=== PATIENT | male | born 1960 | race Caucasian/White ===

== ENCOUNTER 2017-10-23 12:00 | Emergency (ER) | payer OTHER, SELFPAY | END 2017-10-23 14:42 | disposition home or self-care (01) | PROVIDERS: Emergency Provider Nurse Practitioner Family; Family Provider Family Medicine; Visit Provider Nurse Practitioner Family | DX: M25.571 Pain in right ankle and joints of right foot (principal); Z87.39 Personal history of other diseases of the musculoskeletal system and connective tissue | CPT/HCPCS: 73610; 80048; 84550; 99201 ==

== ENCOUNTER 2019-04-24 16:13 | Emergency (ER) | payer OTHER, SELFPAY ==
[2019-04-24 16:24] VITALS: BP 144/97; PULSE 96; RESP 18; TEMP 37.2; O2SAT 98; BMI 31.3
--- NOTE | 2019-04-24 16:39 | HMH.EDUTC ---
[facility] [place] Disposition Clinical Impression: Abscess Cellulitis Qualifiers: Site of cellulitis: head Qualified Code(s): L03.811 - Cellulitis of head [any part, except face] Disposition: Home, Self-Care Condition on Discharge: Good Instructions: Cellulitis, Boil, DI for Skin Abscess, Clindamycin Additional Instructions: *Start antibiotic(s) immediately and be sure to take as ordered for the FULL length of time although you may be feeling better or start to see improvement in the next 24-48 hours *Monitor closely. Outlined redness so that you can monitor easier. Follow up immediately for new or worsening symptoms including but not limited to redness, swelling, streaking from site fever or chills. *Warm compress 15 minutes 3-4 times day *Never squeeze or pop these on your own. Seek immediate medical attention next time this occurs *Monitor Temp. Tylenol every 4 hours as needed and ibuprofen every 6 hours as needed (as long as your primary care doctor has told you that it is ok to take both. For fever, aches, pain. ER if no less that 101 despite Tylenol and ibuprofen Follow up with your family doctor/primary care physician in the next 48-72 hours if no improvement Return if needed Straight to ER if any life threatening symptoms Prescriptions: Clindamycin HCl [Clindamycin HCl 300mg Cap] 300 mg PO Q6 40 Days #40 cap Referrals: Bartolo Pyle MD [Primary Care Provider] - As needed (in 48-72 hours or sooner if any worsening or no improvment) Time of Disposition: 16:52 Medical Decision Making - Walt Inquiry Pt receiving controlled substance: No Walt was queried for this patient: No Vital Signs: 04/24/19 16:24 Temperature 98.9 F Temperature Source Oral Pulse Rate [Left Apical] 96 H Respiratory Rate 18 Blood Pressure [Right Arm] 144/97 H Blood Pressure Mean [Right Arm] 112 02 Sat by Pulse Oximetry 98 Oxygen Delivery Method Room Air [facility] [place] HPI - General Stated complaint: Boil on back of Neck,DELCID Time Seen by Provider: 04/24/19 16:39 Mode of Arrival: Ambulatory Source of Information: Patient Limitations: No Limitations Description of Symptoms (Recalled from Triage Doc. by RN): PT C/O SWOLLEN SPOT ON BACK OF HEAD. PT STATES IT HAS BEEN THERE FOR 3 DAYS. HEENT Symptoms (Recalled from RN notes): No Resp Symptoms (Recalled from RN notes): No Skin Symptoms (Recalled from RN notes): Yes MS Symptoms (Recalled from RN notes): No Functional Status (Recalled from RN notes): N/A - History of Present Illness Provider Complaint: Patient state that he noticed a small pimple like area on the left side of the back of his head on Tuesday and he tried to pop it and didn't get anything out of it State that he noticed today it looked bigger and he tried to pop it again and still nothing State that he has had areas like this before and had to take antibiotics state that it was sore and hurting earlier but he took some aleeve and it was better - Related Data Previous Rx's Medication Instructions Recorded Clindamycin HCl [Clindamycin HCl 300 mg PO Q6 40 Days #40 cap 04/24/19 300mg Cap] Allergies Allergy/AdvReac Type Severity Reaction Status Date / Time No Known Allergies Allergy Unverified 10/18/17 14:24 - Worker's Comp Is this a Worker's Comp case?: No [facility] History - Hepatitis A Screen Drug use history?: No High risk sexual behaviors?: No History of sexually transmitted infection?: No Currently employed?: No Childcare worker?: No Do you have indoor plumbing?: Yes Do you have electricity?: Yes Attestation statement:: This patient has been screened for Hepatitis A risk factors. - Social History Alcohol Intake: never Occupational Status: employed - Psychiatric History Expresses thoughts of harming self/others: None Suicide Plan Description: No Plan ROS Obtained: Yes All systems reviewed & no additional complaints, Yes Systems reviewed as appropriate & no additional complaints Physical Exam - Gene
[2019-04-24 16:53] VITALS: BP 126/66; PULSE 65; RESP 20; TEMP 36.6; O2SAT 100
== END 2019-04-24 17:01 | disposition home or self-care (01) ==
PROVIDERS: Emergency Provider Nurse Practitioner; PCP Family Medicine
DX: L03.811 Cellulitis of head [any part, except face] (principal)
CPT/HCPCS: 99201

== ENCOUNTER 2020-07-19 18:14 | Emergency (ER) | payer OTHER, SELFPAY ==
[2020-07-19 18:15] VITALS: BP 152/98; PULSE 91; RESP 18; TEMP 36.8; O2SAT 96; BMI 30.7
--- NOTE | 2020-07-19 18:17 | HMH.EDGENADL ---
ED Disposition Clinical Impression: Laceration of hand Qualifiers: Encounter type: initial encounter Foreign body presence: without foreign body Laterality: left Qualified Code(s): S61.412A - Laceration without foreign body of left hand, initial encounter Disposition: Home, Self-Care Condition on Discharge: Good Additional Instructions: Follow-up with your PCP. If you have any new, changing, worsening, or concerning symptoms, come back to the emergency department. Referrals: Luis Ward MD [Primary Care Provider] - Time of Disposition: 19:01 - Critical Care Critical Care Time: No Attestation: On , the high probability of a clinically significant, sudden or life threatening deterioration of the following system(s) required my full and direct attention, intervention and personal management. The time I documented below is in addition to time spent performing reported procedures but includes the following listed in this critical care notation. Medical Decision Making - Medical Records Medical records reviewed: Yes: I reviewed the patient's medical records. MR Comment: 59-year-old male presents emergency department with a transverse laceration on the volar aspect of his left index finger at the DIP joint. He has full range of motion. X-ray none this area, not concerned about foreign body or fracture. We will update his tetanus vaccination status, repair the laceration, but for tendon injury and reassess. On reassessment, patient remains well. No tendon injury on exam. See lack repair note for more details. Laceration was repaired and he tolerated this well, it was washed copiously with saline prior to closure. He was given strict return precautions and discharge instructions including follow-up for further evaluation and treatment and verbalized understanding and agreement to the plan. Safe to discharge. - Walt Inquiry Pt receiving controlled substance: No Vital Signs: 07/19/20 18:15 07/19/20 18:31 Temperature 98.2 F Temperature Source Oral Pulse Rate [Left Radial] 91 H 90 Respiratory Rate 18 Blood Pressure [Right Arm] 152/98 H 139/90 Blood Pressure Mean [Right Arm] 116 106 Blood Pressure Source [Right Arm] Automatic Cuff Automatic Cuff Blood Pressure Position [Right Arm] Sitting Sitting 02 Sat by Pulse Oximetry 96 96 Oxygen Delivery Method Room Air Room Air Orders (Tests/Meds): ED MEDICATIONS Discontinued Medications Generic Name Dose Route Start Last Admin Trade Name Freq PRN Reason Stop Dose Admin Tetanus/Reduced Diphtheria/Acell Pertussis 0.5 ml 07/19/20 18:21 07/19/20 18:30 Adacel Tdap 0.5ml Syringe IM 07/19/20 18:22 0.5 ml .ONCE ONE Administration General Adult HPI - General Stated complaint: AO [id number] @1745 Lac to L index finger Time Seen by Provider: 07/19/20 18:17 - History of Present Illness HPI narrative: 59-year-old male presents emergency department with left index finger laceration. He states he was using a sharp fillet knife when he cut his finger just prior to arrival. Some pain, has not taken anything, nothing makes better or worse. He denies any numbness or tingling, no other injury. Not on blood thinners. No other symptoms or concerns at this time. - Related Data Previous Rx's Medication Instructions Recorded Ondansetron [Zofran 4mg ODT] 4 mg PO Q8HP PRN #20 tab.rapdis 10/10/19 Allergies Allergy/AdvReac Type Severity Reaction Status Date / Time No Known Allergies Allergy Unverified 10/18/17 14:24 [facility] History - Hepatitis A Screen Attestation statement:: This patient has been screened for Hepatitis A risk factors. I have reviewed the patient's past medical history: Yes - Social History Smoking Status: Never smoker Tobacco Type: smokeless tobacco # Packs/Day (cigarettes): 0 Alcohol Intake: never Occupational Status: employed ROS Obtained: Yes All systems reviewed & no additional complaints Physical Exam - G
[2020-07-19 18:31] VITALS: BP 139/90; PULSE 90; O2SAT 96
--- NOTE | 2020-07-19 18:40 | PC.NURSE ---
at bedside suturing.
[2020-07-19 19:11] VITALS: BP 142/85; PULSE 87; RESP 18; TEMP 36.8; O2SAT 100
== END 2020-07-19 19:12 | disposition home or self-care (01) ==
PROVIDERS: Emergency Provider Emergency Medicine; PCP Family Medicine
DX: S61.412A Laceration without foreign body of left hand, initial encounter (principal); W26.0XXA Contact with knife, initial encounter; Y92.019 Unspecified place in single-family (private) house as the place of occurrence of the external cause; Z23 Encounter for immunization; F17.290 Nicotine dependence, other tobacco product, uncomplicated
CPT/HCPCS: 12001; 90715; 99282

== ENCOUNTER 2020-07-29 18:40 | Emergency (ER) | payer OTHER, SELFPAY ==
[2020-07-29 19:35] VITALS: BP 148/87; PULSE 83; RESP 18; TEMP 36.8; O2SAT 97; BMI 25.8
[2020-07-29 19:38] VITALS: BP 148/87; PULSE 83; RESP 18; TEMP 36.8; O2SAT 98
== END 2020-07-29 19:39 | disposition home or self-care (01) ==
LOC: UTC 18:43
PROVIDERS: Emergency Provider Nurse Practitioner; PCP Family Medicine
DX: S61.412D Laceration without foreign body of left hand, subsequent encounter (principal)

== ENCOUNTER 2020-08-13 15:36 | Emergency (ER) | payer OTHER, SELFPAY ==
--- NOTE | 2020-08-13 15:32 | ECG_ITS ---
APPROVED REPORT Exam: Resting ECG HR:89 bpm ECG Measurements Heart Rate 89 AXES GA 132 P -87 QRSd 98 QRS 78 QT 344 T 264 QTc 418 Conclusion Unusual P axis and short GA, probable junctional tachycardia with occasional premature ventricular complexes T wave abnormality, consider inferolateral ischemia Abnormal ECG Electronically signed by : Luis Carrera, 08/17/2020 09:47:46
[2020-08-13 15:37] VITALS: BP 173/100; PULSE 89; RESP 17; TEMP 37; O2SAT 98; BMI 31.8
--- NOTE | 2020-08-13 15:38 | HMH.EDGENADL ---
ED Disposition Clinical Impression: Chest pain Qualifiers: Chest pain type: unspecified Qualified Code(s): R07.9 - Chest pain, unspecified Disposition: Home, Self-Care Condition on Discharge: Fair Instructions: DI for Atypical Chest Pain Additional Instructions: Please follow a strict low sugar/low-carb diet and exercise until following up with your primary care doctor within several days. Immediate return if any recurrent chest pain, shortness of breath, nausea/vomiting, abdominal pain, generalized malaise, weakness, or other new concerning symptoms. - Critical Care Critical Care Time: No Attestation: On , the high probability of a clinically significant, sudden or life threatening deterioration of the following system(s) required my full and direct attention, intervention and personal management. The time I documented below is in addition to time spent performing reported procedures but includes the following listed in this critical care notation. Medical Decision Making - Medical Records Medical records reviewed: Yes: I reviewed the patient's medical records. - Walt Inquiry Pt receiving controlled substance: No Vital Signs: 08/13/20 15:37 08/13/20 16:34 08/13/20 17:29 Temperature 98.6 F Temperature Source Oral Pulse Rate [Right Brachial] 89 78 67 Respiratory Rate 17 17 Blood Pressure [Right Arm] 173/100 H 126/83 139/85 Blood Pressure Mean [Right Arm] 124 97 103 Blood Pressure Source [Right Arm] Automatic Cuff Automatic Cuff Automatic Cuff Blood Pressure Position [Right Arm] Sitting Sitting Sitting 02 Sat by Pulse Oximetry 98 97 96 Oxygen Delivery Method Room Air Room Air Room Air 08/13/20 17:43 08/13/20 18:37 Temperature Temperature Source Pulse Rate [Right Brachial] 72 67 Respiratory Rate Blood Pressure [Right Arm] 139/85 130/80 Blood Pressure Mean [Right Arm] 103 96 Blood Pressure Source [Right Arm] Automatic Cuff Automatic Cuff Blood Pressure Position [Right Arm] Sitting Sitting 02 Sat by Pulse Oximetry 96 96 Oxygen Delivery Method Room Air Room Air - Lab Data Lab Results 08/13/20 15:39: WBC 7.5, RBC 5.54, Hgb 17.1, Hct 50.7, MCV 91.6, MCH 31.0, MCHC 33.8, RDW 11.9, Plt Count 217, MPV 8.2, Neut % (Auto) 56.5, Lymph % (Auto) 34.2, [place] % (Auto) 7.3, Eos % (Auto) 0.8, Baso % (Auto) 1.2, Neut # (Auto) 4.2, Lymph # (Auto) 2.6, [place] # (Auto) 0.5, Eos # (Auto) 0.1, Baso # (Auto) 0.1 08/13/20 15:39: Sodium 133 L, Potassium 3.4 L, Chloride 92 L, Carbon Dioxide 31 H, Anion Gap 13.4, BUN 13, Creatinine 0.70, Estimated Creat Clear 142, Estimated GFR 115, Est GFR ( Amer) 139, Glucose 418 H*, Calcium 9.3, Troponin I < 0.01 08/13/20 19:00: POC Glucose 316 H* Result diagrams: 08/13/20 15:39 08/13/20 15:39 Orders (Tests/Meds): ED MEDICATIONS Generic Name Dose Route Start Last Admin Trade Name Freq PRN Reason Stop Dose Admin Lactated Ringer's 1,000 mls @ 999 mls/hr 08/13/20 17:30 08/13/20 17:31 Lactated Ringer's 1000 Ml Bag IV 08/13/20 18:30 999 mls/hr .Q1H1M MARKUS Administration Discontinued Medications Generic Name Dose Route Start Last Admin Trade Name Freq PRN Reason Stop Dose Admin Aspirin 325 mg 08/13/20 15:47 08/13/20 15:57 Aspirin 325mg Tablet PO 08/13/20 15:48 325 mg ONCE ONE Administration Ketorolac Tromethamine 15 mg 08/13/20 17:03 08/13/20 17:25 Ketorolac 30mg/Ml Vial IV 08/13/20 17:04 15 mg ONCE ONE Administration ORDERS Category Date Time Status Troponin I Q3H Lab 08/13/20 18:50 Received Troponin I Q3H Lab 08/13/20 21:45 Ordered Urinalysis and Microscopic Stat Lab 08/13/20 17:03 Ordered - ECG Data Tracing #1 I reviewed this ECG and interpreted as documented below: EKG demonstrates sinus rhythm at a rate of 89 bpm; no acute ST elevation; T wave inversions noted inferiorly and laterally; QTC 418 ms Medical Decision Narrative: Patient presents to the emergency department chest pain. Hemodynamic
--- NOTE | 2020-08-13 15:44 | XR_ITS ---
PROCEDURE: XR CHEST 2V CLINICAL HISTORY: chest pain COMPARISON: No exams were available for comparison FINDINGS: The cardiomediastinal silhouette and pulmonary vascularity are within normal limits. The lungs are clear without infiltrates, suspicious nodules, or pleural effusions. Minimal fibrotic changes are present along the anterior clear space. No acute bony findings. IMPRESSION: No acute findings. Dictated by: Barry Krishnamurthy MD 08/13/2020 16:11 Barry Krishnamurthy MD in [place] 08/13/2020 16:11
[2020-08-13 15:51] LABS: Chloride 92 mmol/L (98-107)
[2020-08-13 15:52] LABS: Potassium 3.4 mmoL/L (3.5-5.1); Sodium 133 mmol/L (136-145)
[2020-08-13 15:53] LABS: Basophils # 0.1 K/mm3 (0-0.2); Basophils % 1.2 % (0.1-2.0); Eosinophils # 0.1 K/mm3 (0.0-0.4); Eosinophils % 0.8 % (0.1-12.0); Hematocrit 50.7 % (42.0-52.0); Hemoglobin 17.1 g/dL (14.1-18.0); Lymphocytes # 2.6 K/mm3 (0.7-4.5); Lymphocytes % 34.2 % (10-50); Mean Corpuscular HGB Conc 33.8 g/dL (31.8-35.4); Mean Corpuscular Volume 91.6 fl (80-94); Mean Platelet Volume 8.2 fl (7.4-10.4); Monocytes # 0.5 K/mm3 (0.1-1.0); Monocytes % 7.3 % (1.7-9.3); Neutrophils # 4.2 K/mm3 (1.8-7.8); Neutrophils % 56.5 % (37.0-80.0); Platelet Count 217 K/mm3 (142-424); Red Blood Count 5.54 M/mm3 (4.60-6.20); Red Cell Distribution Width 11.9 % (11.5-17.5); White Blood Count 7.5 K/mm3 (4.8-10.8)
[2020-08-13 15:54] LABS: Blood Urea Nitrogen 13 mg/dl (9-20); Creatinine Clearance Estimated 142 mL/min (50-200); Estimated Glomerular Filt Rate 115 ml/min (>60); GFR (African American) 139 ML/MIN (>60)
[2020-08-13 15:55] LABS: Anion Gap 13.4 mEq/L (5-15); Calcium 9.3 mg/dl (8.4-10.2); Carbon Dioxide 31 mmol/L (22.0-30.0)
[2020-08-13 16:06] LABS: Glucose 418 mg/dl (74-100)
[2020-08-13 16:08] LABS: Troponin I < 0.01 ng/ml (0.00-0.034)
--- NOTE | 2020-08-13 16:08 | PC.NURSE ---
notified ER of pt critical glucose
[2020-08-13 16:34] VITALS: BP 126/83; PULSE 78; O2SAT 97
[2020-08-13 17:29] VITALS: BP 139/85; PULSE 67; RESP 17; O2SAT 96
[2020-08-13 17:43] VITALS: BP 139/85; PULSE 72; O2SAT 96
[2020-08-13 18:37] VITALS: BP 130/80; PULSE 67; O2SAT 96
[2020-08-13 19:11] LABS: POC Glucose,Bedside 316 (70-110)
[2020-08-13 19:36] LABS: Troponin I < 0.01 ng/ml (0.00-0.034)
[2020-08-13 19:52] VITALS: BP 134/78; PULSE 64; RESP 16; TEMP 37; O2SAT 98
== END 2020-08-13 19:54 | disposition home or self-care (01) ==
PROVIDERS: Emergency Provider Emergency Medicine; PCP Family Medicine
DX: R07.9 Chest pain, unspecified (principal); R03.0 Elevated blood-pressure reading, without diagnosis of hypertension; E11.65 Type 2 diabetes mellitus with hyperglycemia; F17.290 Nicotine dependence, other tobacco product, uncomplicated
CPT/HCPCS: 36415; 71046; 80048; 82962; 84484; 85025; 93005; 96365; 96375; 99284

== ENCOUNTER → 2020-08-27 06:36 | Outpatient (CLI) | payer OTHER, SELFPAY ==
--- NOTE | 2020-08-27 | CA_ITS ---
APPROVED REPORT Exam: Exercise Treadmill Technologist: Gregoria Escobar Ht: 5 ft 6 in Wt: 188 lbs BSA: 1.95 m2 HR: 78 bpm BP: 136/92 mmHg Indications: Chest pain at rest, Abnormal EKG Medical History Medications: Lisinopril,,,,, Aspirin,,,,, Metformin,,,,, Atorvastatin,,,,, Stress Test Details Test: Paul HR Resting HR: 82 bpm Max Heart Rate (APMHR): 160 bpm Max HR Achieved: 142 bpm Target HR (85% APMHR): 136 bpm % of APMHR: 88 Recovery HR: 90 bpm BP Resting BP: 136.0/92.0 mmHg Max BP: 180.0/90.0 mmHg Recovery BP: 138.0/93.0 mmHg ECG Clinical Exercise duration: 07:32 min Highest Stage Achieved: Exercise capacity: 7.0 METs Stress ECG Conclusion Resting ECG: Normal sinus rhythm, PVC, rightward axis, ST-T abnormalities inferiorly and laterally. Patient exercised 7:32 on Paul Protocol with stage II held to completion. Symptoms: Fleeting atypical chest pain Arrhythmias/Ectopy: Rare PVC ST-T Changes: Exaggeration of baseline ST-T abnormalities. Conclusion: Non-diagnostic GXT due to baseline EKG abnormalities. Myoview images reported separately. Test Summary REST . . . . . . . Sitting REST . . . . . . . Standing REST 03:07 0.0 0.0 82 . 136/ 92 . . Stage 1 01:00 10.0 1.7 99 . . . . Stage 1 02:00 10.0 1.7 108 . . . . Stage 1 03:00 10.0 1.7 112 . 162/ 84 . . Stage 2 01:00 12.0 2.5 118 . . . . Stage 2 02:00 12.0 2.5 129 . . . . Stage 2 . . . . . . . Myoview Injected Stage 2 . . . . . . . Stage held Stage 2 03:00 12.0 2.5 139 . 168/ 90 . . Stage 2 04:00 12.0 2.5 140 . 168/ 90 . . Stage 2 . . . . . . . Chest pain Stage 2 . . . . . . . Stage resumed Stage 2 04:32 12.0 2.5 142 . 168/ 90 . Stop exercise at 07:32 RECOVERY 01:00 0.0 0.0 132 . 180/ 90 . . RECOVERY 02:00 0.0 0.0 117 . 180/ 90 . . RECOVERY 03:00 0.0 0.0 103 . 180/ 90 . . RECOVERY 04:00 0.0 0.0 94 . 178/108 . . RECOVERY 05:00 0.0 0.0 93 . 178/108 . . RECOVERY 06:00 0.0 0.0 89 . 145/ 97 . . RECOVERY 07:00 0.0 0.0 90 . 138/ 93 . . RECOVERY 07:44 0.0 0.0 91 . 138/ 93 . . Electronically signed by : Saman Craig, 08/28/2020 10:22:57
--- NOTE | 2020-08-27 06:39 | NM_ITS ---
APPROVED REPORT Exam: Nuclear Stress Test Indication: HTN, DM, HYPERLIPIDEMIA, FM HX, C.P., SOB Patient Location: Outpatient Stress Tech: Gregoria Escobar [place] Tech:Laurie Plasencia, ARRT, RT (R)(N) Ht: 5 ft 6 in Wt: 188 lbs HR: 78 bpm BP: 136/92 mmHg BSA: 1.95 m2 BMI: 30.3 History: HTN, DM, HYPERLIPIDEMIA, FM HX, C.P., SOB Procedure: Patient exercised on Paul protocol 7:32 minutes and sec, resting heart rate 78 bpm, resting blood pressure 120/92 mmHg, with exercise maximum heart rate achived was 142 bpm which is 89 % of the maximum predicted heart rate and blood pressure was 180/90 mmHg. Patient has Adequate exercise capacity, achieved 7.0 METs of workload on treadmill, the blood pressure response to exercise was Adequate. FLEETING ATYPICAL Electrocardiogram Resting electrocardiogram shows sinus rhythm nonspecific ST-T changes, with exercise there is additional millimeter ST segment depression noted from the baseline EKG. The EKG portion of the exercise Myoview is nondiagnostic due to baseline abnormal EKG. Cardiac Stress and Resting SPECT Images: Cardiac Stress and Resting SPECT images were obtained using technetium 99m Myoview 32.7 mCi stress and 10.85 mCi at rest. Gated SPECT for analysis of segmental wall motion and calculation of the ejection fraction also done. Prone images were also obtained. Cardiac stress and rest SPECT images show uniform myocardial activity without segmental perfusion abnormality, computer derived ejection fraction is 56% with no regional wall motion abnormality, right ventricle is mildly enlarged with normal contractility. Conclusion: 1. The EKG portion of the exercise Myoview is nondiagnostic due to baseline abnormal EKG, patient has adequate exercise capacity achieved 7 mets of workload on treadmill, the blood pressure response to exercise was adequate. 2. No scintigraphic evidence of reversible ischemia seen, computer derived ejection fraction is 56% with no regional wall motion abnormality, right ventricle is mildly enlarged with normal contractility. Electronically signed by : Saman Craig, 08/28/2020 10:27:41
--- NOTE | 2020-08-27 09:07 | HMH.ITSHM ---
Current Home Medications as stated by this patient Sai Blanc or floor representative. []METFORMIN ATORVASTATIN LISINOPRIL ASA
== END ==
PROVIDERS: PCP Family Medicine; Visit Provider Family Medicine
DX: R07.9 Chest pain, unspecified (principal); R94.31 Abnormal electrocardiogram [ECG] [EKG]; E11.65 Type 2 diabetes mellitus with hyperglycemia
CPT/HCPCS: 78452; 93017; A9502

== ENCOUNTER 2020-10-21 04:16 | Emergency (ER) | payer OTHER, SELFPAY ==
[2020-10-21 04:18] VITALS: BP 159/106; PULSE 101; RESP 17; O2SAT 98
[2020-10-21 04:22] VITALS: BP 159/106; PULSE 98; RESP 17; TEMP 36.6; O2SAT 98; BMI 30.7
--- NOTE | 2020-10-21 04:41 | XR_ITS ---
PROCEDURE: XR CHEST 2V CLINICAL HISTORY: upper resp Cough COMPARISON: CR CXR1 CHEST-PORTABLE from 10/29/2014 CR CXR CHEST(2 VIEWS-NOT PORTABLE) from 03/26/2015 CR XR CHEST 2V from 08/13/2020 FINDINGS: The cardiomediastinal silhouette and pulmonary vascularity are within normal limits. The lungs are clear without infiltrates, suspicious nodules, or pleural effusions. No acute bony abnormalities. IMPRESSION: No acute findings. Dictated by: Barry Krishnamurthy MD 10/21/2020 05:18 Barry Krishnamurthy MD in [place] 10/21/2020 05:18
[2020-10-21 04:48] VITALS: BP 150/101; PULSE 91; RESP 17; O2SAT 95
--- NOTE | 2020-10-21 04:55 | PC.NURSE ---
Patient to Radiology
--- NOTE | 2020-10-21 05:29 | PC.NURSE ---
patient retrurned from Radiology
[2020-10-21 05:38] LABS: Strep Scrn Group A (Rapid) Negative (Negative)
--- NOTE | 2020-10-21 06:03 | HMH.EDURI ---
ED Disposition Clinical Impression: Bronchitis Disposition: Home, Self-Care Condition on Discharge: Good Instructions: DI for Acute Bronchitis Additional Instructions: use meds and see pcp for follow up Prescriptions: levoFLOXacin [Levaquin 500mg tab] 500 mg PO DAILY #7 tab Transmission Status: Pending to [facility] predniSONE [Prednisone 20mg Tab] 20 mg PO BID #10 tab Transmission Status: Pending to [facility] Benzonatate [Tessalon Perle 100mg Cap] 100 mg PO TID #30 cap Transmission Status: Pending to [facility] Referrals: Luis Ward MD [Primary Care Provider] - - Critical Care Critical Care Time: No Attestation: On 10/21/20, the high probability of a clinically significant, sudden or life threatening deterioration of the following system(s) required my full and direct attention, intervention and personal management. The time I documented below is in addition to time spent performing reported procedures but includes the following listed in this critical care notation. Medical Decision Making - Medical Records Medical records reviewed: Yes: I reviewed the patient's medical records. - Walt Inquiry Pt receiving controlled substance: No Vital Signs: 10/21/20 04:18 10/21/20 04:22 10/21/20 04:48 Temperature 98 F Temperature Source Oral Pulse Rate [Right Brachial] 101 H 98 H 91 H Respiratory Rate 17 17 17 Blood Pressure [Right Arm] 159/106 H 159/106 H 150/101 H Blood Pressure Mean [Right Arm] 123 123 117 Blood Pressure Source [Right Arm] Automatic Cuff Blood Pressure Position [Right Arm] Sitting Sitting Sitting 02 Sat by Pulse Oximetry 98 98 95 Oxygen Delivery Method Room Air Room Air Room Air - Lab Data Lab results reviewed: Yes: I reviewed the patient's lab results. Lab Results 10/21/20 03:45: Influenza Type A Ag Negative, Influenza Type B Ag Negative 10/21/20 03:45: Group A Strep Rapid Negative Orders (Tests/Meds): ORDERS Category Date Time Status Strep Screen Confirmation Stat Micro 10/21/20 03:45 Received - Radiology Data #1 Image(s): Chest Image Reviewed: Yes I reviewed the patient's radiology image Preliminary Findings: Normal/NAD Medical Decision Narrative: will do op covid-19 testing URI/Sore Throat HPI - General Chief Complaint: Upper Respiratory Infection Stated Complaint: Cough,Drainage, Time Seen by Provider: 10/21/20 05:15 Mode of Arrival: Ambulatory Source of Information: Patient, Medical Record Limitations: No Limitations Description of Symptoms (Recalled from ER Triage Doc. 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 - no known covid -19 exposure MD Complaint: cough Onset (ago): day(s) Severity: moderate Able to tolerate fluids by mouth: Yes Context: sick contacts Associated symptoms: denies other symptoms Treatments prior to arrival: none - Related Data Previous Rx's Medication Instructions Recorded Ondansetron [Zofran 4mg ODT] 4 mg PO Q8HP PRN #20 tab.rapdis 10/10/19 Benzonatate [Tessalon Perle 100mg 100 mg PO TID #30 cap 10/21/20 Cap] levoFLOXacin [Levaquin 500mg 500 mg PO DAILY #7 tab 10/21/20 tab] predniSONE [Prednisone 20mg 20 mg PO BID #10 tab 10/21/20 Tab] Allergies Allergy/AdvReac Type Severity Reaction Status Date / Time No Known Allergies Allergy Unverified 10/18/17 14:24 [facility] History - Hepatitis A Screen Drug use history?: No High risk sexual behaviors?: No History of sexually transmitted infection?: No Currently employed?: No Childcare worker?: No Do you have indoor plumbing?: Yes Do you have electricity?: Yes Attestation statement:: This patient has been screened for Hepatitis A risk factors. I have reviewed the patient's past medical history: Yes Medical History: Reports:: Diabetes Mellitus Type 2 Denies:: Internal Pacemaker Other Surgeries: No: Chema
[2020-10-21 06:20] VITALS: BP 114/83; PULSE 76; RESP 16; TEMP 36.5; O2SAT 99
[2020-10-22 09:25] LABS: Covid-19 Nasal PCR Sendout P&C POSITIVE
== END 2020-10-21 06:24 | disposition home or self-care (01) ==
PROVIDERS: Emergency Provider Emergency Medicine; PCP Family Medicine
DX: U07.1 COVID-19 (principal); E11.9 Type 2 diabetes mellitus without complications; Z87.891 Personal history of nicotine dependence
CPT/HCPCS: 71046; 87275; 87276; 87430; 99283; U0004

== ENCOUNTER 2020-11-01 08:59 | Emergency (ER) | payer OTHER, SELFPAY ==
[2020-11-01 09:10] VITALS: BP 171/84; PULSE 103; RESP 16; TEMP 36.4; O2SAT 98; BMI 30.7
--- NOTE | 2020-11-01 09:28 | HMH.EDUTC ---
[facility] [place] Clinical Impression: COVID-19 Disposition: Home, Self-Care Condition on Discharge: Good Instructions: Preventing the Spread of Coronavirus Discharge Instructions Additional Instructions: Drink plenty of fluids. Take tylenol for pain or fever. Return if you begin to have difficulty breathing. Follow up with your regular doctor. GO TO THE ER FOR ANY WORSENING SYMPTOMS Referrals: Luis Ward MD [Primary Care Provider] - Time of Disposition: 09:40 Medical Decision Making - Medical Records Medical records reviewed: No: I reviewed the patient's medical records. - Walt Inquiry Pt receiving controlled substance: No Vital Signs: 11/01/20 09:10 11/01/20 09:51 Temperature 97.5 F L 97.5 F L Temperature Source Oral Pulse Rate 103 H Pulse Rate [Left Brachial] 103 H Respiratory Rate 16 16 Blood Pressure 171/84 H Blood Pressure [Left Arm] 171/84 H Blood Pressure Mean [Left Arm] 113 Blood Pressure Source [Left Arm] Automatic Cuff Blood Pressure Position [Left Arm] Sitting 02 Sat by Pulse Oximetry 98 Oxygen Delivery Method Room Air Orders (Tests/Meds): ORDERS Category Date Time Status Covid-19 Nasal PCR ([facility]) Routine Lab 11/01/20 09:20 Re[place] [facility] [place] [facility] [place] - General Stated complaint: retest for covid Time Seen by Provider: 11/01/20 09:28 - History of Present Illness Provider Complaint: He states that he has been positive for covid. He is here to have a retest per his request. He states that he is still having some cough and shortness of breath at times, but he denies worsening symptoms. - Related Data Allergies Allergy/AdvReac Type Severity Reaction Status Date / Time No Known Allergies Allergy Verified 11/01/20 09:35 [facility] History - Hepatitis A Screen Attestation statement:: This patient has been screened for Hepatitis A risk factors. I have reviewed the patient's past medical history: Yes Medical History: Reports:: Diabetes Mellitus Type 2 Denies:: Internal Pacemaker Other Surgeries: No: Pacemaker - Social History Smoking Status: Former smoker Tobacco Type: cigarettes # Packs/Day (cigarettes): 0 Alcohol Intake: never Occupational Status: employed ROS Obtained: Yes All systems reviewed & no additional complaints - Constitutional Constitutional: Reports system reviewed and no additional complaints, except as docu - Eyes Eyes: Reports system reviewed and no additional complaints, except as docu - ENT Ears, Nose, Mouth, and Throat: Denies dizziness, Denies otalgia, Reports sore throat - Cardiovascular Cardiovascular: Denies chest pain - Respiratory Respiratory: Yes chest congestion, Yes cough, No dyspnea, No stridor, No wheezing Physical Exam - General General appearance: alert, in no apparent distress - Head Head exam: atraumatic, normocephalic, normal inspection - Eye Eye exam: Present: normal appearance, PERRL, EOMI - ENT ENT exam: Present: normal exam, normal oropharynx, mucous membranes moist, TM's normal bilaterally, normal external ear exam - Neck Neck exam: Present: normal inspection, full ROM, trachea midline. Absent: meningismus, lymphadenopathy - Chest Chest inspection: Present: normal inspection, symmetric chest wall rise. Absent: tenderness - Respiratory Respiratory exam: Present: normal lung sounds bilaterally. Absent: respiratory distress - Cardiovascular Cardiovascular exam: Present: regular rate, normal rhythm. Absent: JVD - Abdominal Exam Abdominal exam: Present: soft, normal bowel sounds. Absent: distention, tenderness, guarding - Extremities Exam Extremities exam: Present: normal inspection, full ROM, normal capillary refill. Absent: calf tenderness - Back Exam Back exam: Present: normal inspection. Absent: tenderness - Neurological Exam Neurological exam: Present: alert, oriented X3 - Psychiatric Psychiatric exam: Present: normal affect, normal mood - Skin Skin e
[2020-11-01 09:51] VITALS: BP 171/84; PULSE 103; RESP 16; TEMP 36.4; O2SAT 98
== END 2020-11-01 09:56 | disposition home or self-care (01) ==
PROVIDERS: Emergency Provider Nurse Practitioner Family; PCP Family Medicine
DX: U07.1 COVID-19 (principal); E11.9 Type 2 diabetes mellitus without complications
CPT/HCPCS: 99202; G0463; U0003

== ENCOUNTER 2020-11-04 13:08 | Emergency (ER) | payer OTHER, SELFPAY ==
[2020-11-04] VITALS (7 sets, daily range): BP systolic 117–152; BP diastolic 67–92; PULSE 81–99; RESP 18; TEMP 36.7; O2SAT 93–96; BMI 30.9
--- NOTE | 2020-11-04 13:30 | CT_ITS ---
PROCEDURE: CT HEAD/BRAIN WO CON CLINICAL INDICATION: dizziness COMPARISON: No exams were available for comparison TECHNIQUE: Axial images obtained. All CT scans at the facility use one or more dose reduction, viz: automated exposure control, ma/kV adjustment per patient size (including targeted exams where dose is matched to indication, i.e. head), or iterative reconstruction technique. FINDINGS: No midline shift, mass effect, intracranial hemorrhage, hydrocephalus, or extra-axial fluid collection is evident. There is generalized atrophy with hypoattenuation of the periventricular white matter consistent with microangiopathic changes. The calvarium has an unremarkable appearance. No mastoid effusion. No sinus air-fluid level. IMPRESSION: No acute intracranial finding Dictated by: Barry Krishnamurthy MD 11/04/2020 15:04 Barry Krishnamurthy MD in [place] 11/04/2020 15:04
--- NOTE | 2020-11-04 13:31 | PC.NURSE ---
rad notified of ct head order, spoke with baylee
[2020-11-04 13:39] LABS: Basophils # 0.1 K/mm3 (0-0.2); Eosinophils # 0.2 K/mm3 (0.0-0.4); Eosinophils % 1.9 % (0.1-12.0); Hematocrit 44.4 % (42.0-52.0); Hemoglobin 15.7 g/dL (14.1-18.0); Lymphocytes # 2.8 K/mm3 (0.7-4.5); Lymphocytes % 29.2 % (10-50); Mean Corpuscular HGB Conc 35.4 g/dL (31.8-35.4); Mean Corpuscular Hemoglobin 31.4 pg (27.0-31.2); Mean Corpuscular Volume 88.6 fl (80-94); Mean Platelet Volume 7.9 fl (7.4-10.4); Monocytes # 0.6 K/mm3 (0.1-1.0); Monocytes % 5.7 % (1.7-9.3); Neutrophils % 62.1 % (37.0-80.0); Platelet Count 241 K/mm3 (142-424); Red Blood Count 5.01 M/mm3 (4.60-6.20); Red Cell Distribution Width 12.8 % (11.5-17.5); White Blood Count 9.7 K/mm3 (4.8-10.8)
--- NOTE | 2020-11-04 13:43 | PC.NURSE ---
Pt to rad.
--- NOTE | 2020-11-04 13:45 | XR_ITS ---
PROCEDURE: XR CHEST PORTABLE CLINICAL HISTORY: cough Covid19 positive COMPARISON: CR CXR CHEST(2 VIEWS-NOT PORTABLE) from 03/26/2015 CR XR CHEST 2V from 08/13/2020 CR XR CHEST 2V from 10/21/2020 FINDINGS: The cardiomediastinal silhouette and pulmonary vascularity are within normal limits. There has been interval development of faint ground-glass infiltrate in the right lower lobe consistent with pneumonia. No acute bony abnormalities. IMPRESSION: Ground-glass pneumonia right lower lobe which may be seen with Covid19 pneumonia Dictated by: Barry Krishnamurthy MD 11/04/2020 15:02 Barry Krishnamurthy MD in [place] 11/04/2020 15:02
--- NOTE | 2020-11-04 13:45 | HMH.EDGENADL ---
ED Disposition Clinical Impression: Sinus congestion, COVID-19, Change in vision Disposition: Home, Self-Care Condition on Discharge: Fair Instructions: Dizziness, Nonvertigo Prescriptions: Meclizine HCl [Meclizine 25mg Tab] 25 mg PO Q8 PRN 2 Days #6 tab PRN Reason: Dizziness Transmission Status: Received by [facility] Referrals: Luis Ward MD [Primary Care Provider] - Time of Disposition: 15:41 - Critical Care Critical Care Time: No Attestation: On 11/04/20, the high probability of a clinically significant, sudden or life threatening deterioration of the following system(s) required my full and direct attention, intervention and personal management. The time I documented below is in addition to time spent performing reported procedures but includes the following listed in this critical care notation. Medical Decision Making - Medical Records Medical records reviewed: Yes: I reviewed the patient's medical records. - Walt Inquiry Pt receiving controlled substance: No Vital Signs: 11/04/20 13:23 11/04/20 13:31 11/04/20 14:16 Temperature 98.0 F Temperature Source Oral Pulse Rate [Right Radial] 99 H 96 H 93 H Respiratory Rate 18 Blood Pressure [Right Arm] 152/92 H 128/85 131/80 Blood Pressure Mean [Right Arm] 112 99 97 Blood Pressure Source [Right Arm] Automatic Cuff Automatic Cuff Automatic Cuff Blood Pressure Position [Right Arm] Sitting Sitting Sitting 02 Sat by Pulse Oximetry 96 96 94 L Oxygen Delivery Method Room Air Room Air Room Air 11/04/20 14:34 11/04/20 15:07 11/04/20 15:31 Temperature Temperature Source Pulse Rate [Right Radial] 89 86 81 Respiratory Rate Blood Pressure [Right Arm] 117/73 126/79 119/79 Blood Pressure Mean [Right Arm] 87 94 92 Blood Pressure Source [Right Arm] Automatic Cuff Automatic Cuff Automatic Cuff Blood Pressure Position [Right Arm] Sitting Sitting Sitting 02 Sat by Pulse Oximetry 95 95 93 L Oxygen Delivery Method Room Air Room Air Room Air - Lab Data Lab Results 11/04/20 13:25: WBC 9.7, RBC 5.01, Hgb 15.7, Hct 44.4, MCV 88.6, MCH 31.4 H, MCHC 35.4, RDW 12.8, Plt Count 241, MPV 7.9, Neut % (Auto) 62.1, Lymph % (Auto) 29.2, [place] % (Auto) 5.7, Eos % (Auto) 1.9, Baso % (Auto) 1.0, Neut # (Auto) 6.0, Lymph # (Auto) 2.8, [place] # (Auto) 0.6, Eos # (Auto) 0.2, Baso # (Auto) 0.1 11/04/20 13:25: Sodium 132 L, Potassium 3.9, Chloride 95 L, Carbon Dioxide 30, Anion Gap 10.9, BUN 17, Creatinine 0.80, Estimated Creat Clear 121, Estimated GFR 99, Est GFR ( Amer) 119, Glucose 248 H, Calcium 9.2, Total Bilirubin 0.7, AST 34, ALT 27, Alkaline Phosphatase 143 H, Troponin I < 0.01, Total Protein 7.9, Albumin 4.1, Globulin 3.8 H, Albumin/Globulin Ratio 1.1 11/04/20 13:25: Ferritin 1320 H, C-Reactive Protein 25.0 H Result diagrams: 11/04/20 13:25 11/04/20 13:25 Orders (Tests/Meds): ED MEDICATIONS Discontinued Medications Generic Name Dose Route Start Last Admin Trade Name Freq PRN Reason Stop Dose Admin Meclizine HCl 25 mg 11/04/20 15:34 11/04/20 15:55 Meclizine 25mg Tablet PO 11/04/20 15:35 25 mg ONCE ONE Administration ORDERS Category Date Time Status Troponin I Q3H Lab 11/04/20 16:30 Ordered Troponin I Q3H Lab 11/04/20 19:30 Ordered Medical Decision Narrative: In summary this is a 59-year-old male with history of diabetes and recent Covid diagnosis presenting to the emergency department with hazy vision, and his congestion and generalized malaise. Patient clinically stable on arrival. Vital signs within normal limits. Concern for metabolic derangement, hyperglycemia. Does not have vertigo. No abnormal [id number] test. No nystagmus. Doubt central cause like ischemia. Obtain CBC, CMP, inflammatory markers, noncontrast head CT, chest x-ray. Patient given 25 mg meclizine. Initial laboratory results show elevated glucose at 248. He also has elevated inflammatory markers. Likely due to recent COVID-
[2020-11-04 13:46] LABS: Chloride 95 mmol/L (98-107)
[2020-11-04 13:47] LABS: Potassium 3.9 mmoL/L (3.5-5.1); Sodium 132 mmol/L (136-145)
[2020-11-04 13:49] LABS: Alanine Aminotransferase 27 U/L (12-78); Aspartate Amino Transferase 34 U/L (17-59); Bilirubin,Total 0.7 mg/dl (0.2-1.3); Blood Urea Nitrogen 17 mg/dl (9-20); Creatinine Clearance Estimated 121 mL/min (50-200); Estimated Glomerular Filt Rate 99 ml/min (>60); GFR (African American) 119 ML/MIN (>60)
[2020-11-04 13:50] LABS: Albumin Level 4.1 g/dl (3.5-5.0); Albumin/Globulin Ratio 1.1 (1.1-1.8); Alkaline Phosphatase 143 U/L (38-126); Anion Gap 10.9 mEq/L (5-15); Calcium 9.2 mg/dl (8.4-10.2); Carbon Dioxide 30 mmol/L (22.0-30.0); Globulin 3.8 g/dL (1.3-3.2); Glucose 248 mg/dl (74-100); Total Protein,Serum 7.9 g/dl (6.3-8.2)
--- NOTE | 2020-11-04 13:59 | PC.NURSE ---
pt return from CT
[2020-11-04 14:03] LABS: Troponin I < 0.01 ng/ml (0.00-0.034)
--- NOTE | 2020-11-04 14:49 | ECG_ITS ---
APPROVED REPORT Exam: Resting ECG HR:90 bpm ECG Measurements Heart Rate 90 AXES IA 142 P 41 QRSd 86 QRS 42 QT 342 T -1 QTc 418 Conclusion Normal sinus rhythm Nonspecific T wave abnormality Abnormal ECG Electronically signed by : Luis Carrera, 11/04/2020 19:54:22
[2020-11-04 16:16] LABS: Ferritin 1320 ng/ml (17.9-464)
== END 2020-11-04 16:42 | disposition home or self-care (01) ==
PROVIDERS: Emergency Provider Emergency Medicine; PCP Family Medicine
DX: U07.1 COVID-19 (principal); E11.65 Type 2 diabetes mellitus with hyperglycemia; H53.8 Other visual disturbances; Z87.891 Personal history of nicotine dependence
CPT/HCPCS: 70450; 71045; 80053; 82728; 84484; 85025; 86140; 93005; 99283

== ENCOUNTER → 2020-11-07 10:23 | Outpatient (CLI) | payer OTHER, SELFPAY ==
[2020-11-07 11:45] LABS: Blood Urea Nitrogen 13 mg/dl (9-20); Estimated Glomerular Filt Rate 98 ml/min (>60); GFR (African American) 119 ML/MIN (>60)
== END ==
PROVIDERS: Visit Provider Family Medicine
DX: U07.1 COVID-19 (principal); R27.0 Ataxia, unspecified; H53.9 Unspecified visual disturbance
CPT/HCPCS: 36415; 82565; 84520

== ENCOUNTER → 2020-11-10 10:30 | Outpatient (CLI) | payer OTHER, SELFPAY ==
--- NOTE | 2020-11-10 10:33 | MR_ITS ---
PROCEDURE: MR HEAD/BRAIN WO/W CON CLINICAL INDICATION: VISUAL DISTURBANCE, ATAXIA blurred vision. Covid positive on dec and blurred vision and abnormal gait. Headache. Pt states since covid, blurred vision is worse or has a harder time controlling blood sugar. COMPARISON: CT CT HEAD/BRAIN WO CON from 11/04/2020 TECHNIQUE: Routine multiplanar multi echo sequences are performed without and with gadolinium enhancement. FINDINGS: No midline shift, mass effect, intracranial hemorrhage, or hydrocephalus. No evidence of acute infarction. The cerebellopontine angles, cerebellum, and brainstem have an unremarkable appearance. There is generalized atrophy. Numerous periventricular and subcortical T2 white matter hyperintensities are present. There is no evidence of corpus callosum ule involvement cerebellar involvement or temporal lobe involvement. These lesions do not enhance. The pituitary, optic chiasm, corpus callosum, and craniocervical junction have an unremarkable appearance. No mastoid effusion. Mucosal thickening involves the anterior wall and floor the right maxillary sinus and the floor the left maxillary sinus. IMPRESSION: 1. Diffuse T2 white matter hyperintensities which may be due to ischemic gliotic changes from microvascular disease. These are somewhat more severe than the normal aging process. Does the patient have hypertension or diabetes or is there smoking history?. Differential diagnosis includes migraine headache and multiple sclerosis. 2. Mild prominence of the ventricles which may be due to ex vacuo dilatation Dictated by: Barry Krishnamurthy MD 11/12/2020 10:41 Barry Krishnamurthy MD in [place] 11/12/2020 10:41
== END ==
PROVIDERS: PCP Family Medicine; Visit Provider Family Medicine
DX: U07.1 COVID-19 (principal); R27.0 Ataxia, unspecified; H53.9 Unspecified visual disturbance
CPT/HCPCS: 70553; A9576

== ENCOUNTER → 2020-12-05 15:23 | Outpatient (CLI) | payer BC, OTHER, SELFPAY | PROVIDERS: Visit Provider Ophthalmology | DX: Z01.818 Encounter for other preprocedural examination (principal) ==

== ENCOUNTER → 2020-12-06 10:27 | Outpatient (CLI) | payer BC, OTHER, SELFPAY ==
[2020-12-06 12:26] LABS: Coronavirus 19 IgG Antibody Positive (Negative)
[2020-12-06 12:32] LABS: Coronavirus 19 IgM Antibody Positive (Negative)
== END ==
PROVIDERS: Visit Provider Ophthalmology
DX: Z01.818 Encounter for other preprocedural examination (principal); Z20.822 Contact with and (suspected) exposure to COVID-19; Z86.16 Personal history of COVID-19; H25.11 Age-related nuclear cataract, right eye
CPT/HCPCS: 36415; 86328

== ENCOUNTER → 2020-12-08 11:59 | Outpatient (CLI) | payer BC, OTHER, SELFPAY ==
[2020-12-08 13:14] LABS: Coronavirus 19 IgG Antibody Positive (Negative); Coronavirus 19 IgM Antibody Negative (Negative)
== END ==
PROVIDERS: PCP Family Medicine; Visit Provider Ophthalmology
DX: Z01.812 Encounter for preprocedural laboratory examination (principal); Z20.822 Contact with and (suspected) exposure to COVID-19; Z86.16 Personal history of COVID-19; H25.11 Age-related nuclear cataract, right eye
CPT/HCPCS: 36415; 86328; U0003

== ENCOUNTER 2020-12-09 07:24 | Day surgery (SDC) | payer BC, OTHER, SELFPAY ==
[2020-12-08 11:25] VITALS: BMI 31.3
[2020-12-09 09:04] VITALS: BP 133/89; PULSE 90; RESP 18; TEMP 36.6; O2SAT 98
[2020-12-09 09:34] LABS: POC Glucose,Bedside 152 (70-110)
[2020-12-09 11:03] VITALS: BP 128/87; PULSE 79; RESP 18; O2SAT 99
[2020-12-09 11:08] VITALS: BP 127/88; PULSE 75; RESP 18; O2SAT 100
[2020-12-09 11:13] VITALS: BP 130/88; PULSE 73; RESP 16; O2SAT 100
[2020-12-09 11:18] VITALS: BP 141/91; PULSE 73; RESP 16; O2SAT 100
[2020-12-09 11:22] VITALS: BP 118/77; PULSE 81; RESP 16; TEMP 36.2; O2SAT 97
== END 2020-12-09 11:31 | disposition home or self-care (01) ==
LOC: OR 07:26
PROVIDERS: PCP Family Medicine; Visit Provider Ophthalmology
PROC: (CPT 66984; principal; 2020-12-09 10:00)
DX: H26.9 Unspecified cataract (principal); E78.5 Hyperlipidemia, unspecified; I10 Essential (primary) hypertension; E11.9 Type 2 diabetes mellitus without complications; Z79.82 Long term (current) use of aspirin; Z79.84 Long term (current) use of oral hypoglycemic drugs; Z79.899 Other long term (current) drug therapy
CPT/HCPCS: 66984; 82962; V2632

== ENCOUNTER → 2020-12-22 10:08 | Outpatient (CLI) | payer BC, OTHER, SELFPAY ==
[2020-12-22 11:33] LABS: Coronavirus 19 IgG Antibody Positive (Negative)
[2020-12-22 11:38] LABS: Coronavirus 19 IgM Antibody Positive (Negative)
== END ==
PROVIDERS: Visit Provider Ophthalmology
DX: Z01.818 Encounter for other preprocedural examination (principal); Z20.822 Contact with and (suspected) exposure to COVID-19; Z86.16 Personal history of COVID-19; H25.12 Age-related nuclear cataract, left eye
CPT/HCPCS: 36415; 86328

== ENCOUNTER 2020-12-23 06:50 | Day surgery (SDC) | payer BC, OTHER, SELFPAY ==
[2020-12-18 13:06] VITALS: BMI 31.1
[2020-12-23 07:34] VITALS: BP 136/87; PULSE 106; RESP 18; TEMP 36.6; O2SAT 94
[2020-12-23 07:46] LABS: POC Glucose,Bedside 182 (70-110)
[2020-12-23 08:23] VITALS: BP 115/84; PULSE 87; RESP 18; O2SAT 99
[2020-12-23 08:28] VITALS: BP 117/80; PULSE 83; RESP 18; O2SAT 99
[2020-12-23 08:33] VITALS: BP 118/83; PULSE 82; RESP 18; O2SAT 99
[2020-12-23 08:38] VITALS: BP 117/82; PULSE 81; RESP 18; O2SAT 99
[2020-12-23 08:43] VITALS: BP 148/76; PULSE 90; RESP 18; TEMP 36.5; O2SAT 98
== END 2020-12-23 08:55 | disposition home or self-care (01) ==
LOC: OR 06:51
PROVIDERS: PCP Family Medicine; Visit Provider Ophthalmology
PROC: (CPT 66984; principal; 2020-12-23 08:00)
DX: H25.813 Combined forms of age-related cataract, bilateral (principal); E11.9 Type 2 diabetes mellitus without complications; K21.9 Gastro-esophageal reflux disease without esophagitis; Z80.9 Family history of malignant neoplasm, unspecified; Z83.3 Family history of diabetes mellitus; Z82.49 Family history of ischemic heart disease and other diseases of the circulatory system; Z79.82 Long term (current) use of aspirin; Z79.84 Long term (current) use of oral hypoglycemic drugs; Z79.899 Other long term (current) drug therapy; Z86.16 Personal history of COVID-19
CPT/HCPCS: 66984; 82962; V2632

== ENCOUNTER → 2021-11-25 13:34 | Outpatient (CLI) | payer BC, SELFPAY | PROVIDERS: PCP Family Medicine; Visit Provider Family Medicine | DX: Z71.3 Dietary counseling and surveillance (principal); E11.9 Type 2 diabetes mellitus without complications | CPT/HCPCS: 97802 ==

== ENCOUNTER 2022-03-20 09:08 | Emergency (ER) | payer BC, SELFPAY ==
--- NOTE | 2022-03-20 09:26 | HMH.EDUTC ---
[facility] [place] Clinical Impression: Low back pain with sciatica Qualifiers: Chronicity: unspecified Back pain laterality: right Sciatica laterality: sciatica of right side Qualified Code(s): M54.41 - Lumbago with sciatica, right side Disposition: Home, Self-Care Condition on Discharge: Good Instructions: DI for Low Back Pain, DI for Sciatica Additional Instructions: Go home and rest. It would be best if you rested tomorrow too. No heavy lifting. No twisting. Take the oral medications as directed. The muscle relaxer (cyclobenzaprine--Flexeril) will make you drowsy, so don't drive or operate heavy machinery after taking it. Don't start the oral steroids (medrol dose pack) until tomorrow, since you had the shots in here today. Follow up with your regular doctor. GO TO THE ER FOR ANY WORSENING SYMPTOMS OR CONCERN, ESPECIALLY BOWEL OR BLADDER ISSUES, SADDLE AREA NUMBNESS, FEVER, ETC Watch your blood sugars closely while you are on the steroids and follow your prescribed diabetic diet closely while you are on them (like you should always do anyway). Prescriptions: Cyclobenzaprine HCl [Cyclobenzaprine 5mg Tab*] 5 mg PO BIDP PRN #20 tab PRN Reason: Muscle Spasm Transmission Status: Received by [facility] methylPREDNISolone [Medrol] 4 mg PO DIRECTED 6 Days #21 packet Transmission Status: Received by [facility] Referrals: Luis Ward MD [Primary Care Provider] - Forms: Work/School Release Time of Disposition: 09:50 Medical Decision Making - Medical Records Medical records reviewed: No: I reviewed the patient's medical records. - Walt Inquiry Pt receiving controlled substance: No Vital Signs: 03/20/22 09:38 03/20/22 09:55 Temperature 98.4 F 98.4 F Temperature Source Oral Pulse Rate 78 Pulse Rate [Left Radial] 78 Respiratory Rate 19 19 Blood Pressure 161/95 H Blood Pressure [Right Arm] 161/95 H Blood Pressure Mean [Right Arm] 117 02 Sat by Pulse Oximetry 95 Orders (Tests/Meds): ED MEDICATIONS Discontinued Medications Generic Name Dose Route Start Last Admin Trade Name Freq PRN Reason Stop Dose Admin Ketorolac Tromethamine 60 mg 03/20/22 09:44 03/20/22 09:55 Ketorolac 60mg/2ml Vial IM 03/20/22 09:45 60 mg ONCE ONE Administration Methylprednisolone Sodium Succinate 125 mg 03/20/22 09:44 03/20/22 09:56 Methylprednisolone Sod Succ 125mg Vial IM 03/20/22 09:45 125 mg ONCE ONE Administration [facility] [place] HPI - General Stated complaint: lower back/leg pain Time Seen by Provider: 03/20/22 09:26 - History of Present Illness Provider Complaint: He states that he has had right sided low back pain that radiates down his right leg at times. He denies any known injury. He has had similar symptoms like this at times in the past. He is a diabetic, but he has taken steroids for this condition in the past and controlled his blood sugars well. - Related Data Home Medications Medication Instructions Recorded Confirmed Aspirin [Aspirin 81mg EC Tab] 81 mg PO DAILY 12/08/20 12/23/20 Atorvastatin Calcium [Lipitor 20mg 20 mg PO HS 12/08/20 12/23/20 Tab] Metformin HCl [Fortamet] 500 mg PO DAILY 12/08/20 12/23/20 lisinopriL [Lisinopril 20mg Tab] 20 mg PO DAILY 12/08/20 12/23/20 Previous Rx's Medication Instructions Recorded Cyclobenzaprine HCl 5 mg PO BIDP PRN #20 tab 03/20/22 [Cyclobenzaprine 5mg Tab*] methylPREDNISolone [Medrol] 4 mg PO DIRECTED 6 Days #21 03/20/22 packet Allergies Allergy/AdvReac Type Severity Reaction Status Date / Time No Known Allergies Allergy Verified 03/20/22 09:41 [facility] History - Hepatitis A Screen Attestation statement:: This patient has been screened for Hepatitis A risk factors. I have reviewed the patient's past medical history: Yes Medical History: Reports:: Diabetes Mellitus Type 2, Hyperlipidemia, Hypertension Denies:: Cancer, Diabetes Mellitus Type 1, Inte
[2022-03-20 09:38] VITALS: BP 161/95; PULSE 78; RESP 19; TEMP 36.9; O2SAT 95; BMI 37.1
[2022-03-20 09:55] VITALS: BP 161/95; PULSE 78; RESP 19; TEMP 36.9
== END 2022-03-20 10:15 | disposition home or self-care (01) ==
PROVIDERS: Emergency Provider Nurse Practitioner Family; PCP Family Medicine
DX: M54.41 Lumbago with sciatica, right side (principal); M79.606 Pain in leg, unspecified; I10 Essential (primary) hypertension; E11.9 Type 2 diabetes mellitus without complications; F17.210 Nicotine dependence, cigarettes, uncomplicated; Z79.82 Long term (current) use of aspirin; Z79.84 Long term (current) use of oral hypoglycemic drugs; Z79.899 Other long term (current) drug therapy; Z82.49 Family history of ischemic heart disease and other diseases of the circulatory system; Z80.9 Family history of malignant neoplasm, unspecified; Z83.3 Family history of diabetes mellitus
CPT/HCPCS: 96372; 99213; G0463

== ENCOUNTER 2022-03-21 18:10 | Emergency (ER) | payer BC, SELFPAY ==
--- NOTE | 2022-03-21 18:20 | HMH.EDUTC ---
[facility] [place]position <ElviaKike Katy - Last Filed: 03/21/22 21:13> Condition on Discharge: Fair Time of Disposition: : <Irving Madrid - Last Filed: 03/21/22 21:25> Clinical Impression: Low back pain with radiation, Abnormal x-ray of lumbar spine, Lumbar radiculopathy Disposition: Home, Self-Care Instructions: DI for Low Back Pain Additional Instructions: use meds and see pcp for follow up Referrals: Luis Ward MD [Primary Care Provider] - Medical Decision Making - Lab Data Lab results reviewed: Yes: I reviewed the patient's lab results. Result diagrams: 03/21/22 19:45 03/21/22 19:45 <Kike Gan - Last Filed: 03/21/22 21:13> - Medical Records Medical records reviewed: No: I reviewed the patient's medical records. - Walt Inquiry Pt receiving controlled substance: No - Lab Data Lab results reviewed: Yes: I reviewed the patient's lab results. Result diagrams: 03/21/22 19:45 03/21/22 19:45 - Radiology Data #1 Image(s): L-Spine Image Reviewed: Yes I reviewed the patient's radiology image, Yes I have reviewed radiologist's interpretation Preliminary Findings: Abnormal <Irving Madrid - Last Filed: 03/21/22 21:25> Vital Signs: 03/21/22 18:36 03/21/22 19:35 Temperature 97.7 F 98.7 F Temperature Source Oral Oral Pulse Rate [Left Radial] 87 82 Respiratory Rate 19 16 Blood Pressure [Right Arm] 161/93 H Blood Pressure Mean [Right Arm] 115 02 Sat by Pulse Oximetry 99 96 Oxygen Delivery Method Room Air - Lab Data Lab Results 03/21/22 19:35: Urine Color Yellow, Urine Appearance Clear, Urine pH 5.0, Ur Specific [place] 1.015, Urine Protein Negative, Urine Glucose (UA) Negative, Urine Ketones Negative, Urine Blood Negative, Urine Nitrate Negative, Urine Bilirubin Negative, Urine Urobilinogen 1.0, Ur Leukocyte Esterase Negative, Amorphous Sediment Trace 03/21/22 19:45: WBC 15.2 H, RBC 5.48, Hgb 17.8, Hct 51.1, MCV 93.4, MCH 32.4 H, MCHC 34.8, RDW 13.2, Plt Count 252, MPV 8.2, Neut % (Auto) 82.7 H, Lymph % (Auto) 10.9, [place] % (Auto) 5.3, Eos % (Auto) 0.1, Baso % (Auto) 1.1, Neut # (Auto) 12.5 H, Lymph # (Auto) 1.6, [place] # (Auto) 0.8, Eos # (Auto) 0.0, Baso # (Auto) 0.2, Total Counted 100, Neutrophils % (Manual) 89 H, Band Neutrophils % 2.0, Lymphocytes % (Manual) 9 L, Platelet Estimate Normal, RBC Morphology Normal 03/21/22 19:45: Sodium 141, Potassium 4.2, Chloride 103, Carbon Dioxide 29, Anion Gap 13.2, BUN 23 H, Creatinine 0.90, Estimated Creat Clear 113, Estimated GFR 86, Est GFR ( Amer) 103, Glucose 197 H, Calcium 9.3 03/21/22 19:45: ESR 8 03/21/22 19:45: Hemoglobin A1c 5.6 Orders (Tests/Meds): ED MEDICATIONS Discontinued Medications Generic Name Dose Route Start Last Admin Trade Name Evanq PRN Reason Stop Dose Admin Acetaminophen/Codeine Phosphate packet 03/21/22 21:17 Acetaminophen 300mg W/Codeine 30mg Take Home Pack (6) PO 03/21/22 21:18 ONCE ONE Acetaminophen/Codeine Phosphate 1 packet 03/21/22 21:17 03/21/22 21:24 Acetaminophen 300mg W/Codeine 30mg Take Home Pack (6) PO 03/21/22 21:18 1 packet ONCE ONE Administration Hydromorphone HCl 1 mg 03/21/22 20:30 03/21/22 20:45 Hydromorphone 2mg/Ml Syringe IV 03/21/22 20:31 1 mg ONCE ONE Administration Methylprednisolone Sodium Succinate 125 mg 03/21/22 20:29 03/21/22 20:45 Methylprednisolone Sod Succ 125mg Vial IV 03/21/22 20:30 125 mg ONCE ONE Administration Ondansetron HCl 4 mg 03/21/22 20:30 03/21/22 20:45 Ondansetron 4mg/2ml Vial IV 03/21/22 20:31 4 mg ONCE ONE Administration - Radiology Data #1 PROCEDURE INFORMATION: Exam: XR Lumbosacral Spine Exam date and time: 03/21/2022 6:20 PM Age: 61 years old Clinical indication: Low back pain; Additional info: Low back pain, no injury radiating pain down RT leg TECHNIQUE: Imaging protocol: XR of the lumbosacral spine. Views: 4 or 5 views. COMPARISON: ABDPELW/O CT ABD PELVIS W/O
--- NOTE | 2022-03-21 18:21 | XR_ITS ---
PROCEDURE INFORMATION: Exam: XR Lumbosacral Spine Exam date and time: 03/21/2022 6:20 PM Age: 61 years old Clinical indication: Low back pain; Additional info: Low back pain, no injury radiating pain down RT leg TECHNIQUE: Imaging protocol: XR of the lumbosacral spine. Views: 4 or 5 views. COMPARISON: ABDPELW/O CT ABD PELVIS W/O CONTRAST 06/10/2015 1:00 AM FINDINGS: Bones/joints: Lumbar spondylosis most pronounced at L4 and L5. Irregularity anterior superior L3 vertebral endplate. 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 Multilevel hypertrophic facet changes. Soft tissues: Unremarkable. IMPRESSION: 1. Lumbar spondylosis most pronounced at L4 and L5. 2. Irregularity anterior superior L3 vertebral endplate. 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
[2022-03-21 18:36] VITALS: BP 161/93; PULSE 87; RESP 19; TEMP 36.5; O2SAT 99; BMI 37.1
--- NOTE | 2022-03-21 19:30 | PC.NURSE ---
Pt arrived to ED from [facility] via wheelchair
[2022-03-21 19:35] VITALS: PULSE 82; RESP 16; TEMP 37.1; O2SAT 96; BMI 37.1
[2022-03-21 19:42] LABS: Microscopic, Urine URINE MICROSCOPIC (MICROSCOPIC)
[2022-03-21 19:43] LABS: Appearance,Urine CLEAR (Clear); Bilirubin,Urine Negative (Negative); Blood, Urine Negative (Negative); Color,Urine YELLOW (Yellow); Glucose,Urine (UA) Negative (Negative); Ketones,Urine Negative (Negative); Leukocyte Esterase,Urine Negative (Negative); Nitrate,Urine Negative (Negative); Protein,Urine Negative (Negative); Specific Gravity, Urine 1.015 (1.005-1.030)
[2022-03-21 19:48] LABS: Amorphous Sediment,Urine Trace /lpf
[2022-03-21 20:33] LABS: Basophils # 0.2 K/mm3 (0-0.2); Basophils % 1.1 % (0.1-2.0); Eosinophils % 0.1 % (0.1-12.0); Hematocrit 51.1 % (42.0-52.0); Hemoglobin 17.8 g/dL (14.1-18.0); Lymphocytes # 1.6 K/mm3 (0.7-4.5); Lymphocytes % 10.9 % (10-50); Mean Corpuscular HGB Conc 34.8 g/dL (31.8-35.4); Mean Corpuscular Hemoglobin 32.4 pg (27.0-31.2); Mean Corpuscular Volume 93.4 fl (80-94); Mean Platelet Volume 8.2 fl (7.4-10.4); Monocytes # 0.8 K/mm3 (0.1-1.0); Monocytes % 5.3 % (1.7-9.3); Neutrophils # 12.5 K/mm3 (1.8-7.8); Neutrophils % 82.7 % (37.0-80.0); Platelet Count 252 K/mm3 (142-424); Red Blood Count 5.48 M/mm3 (4.60-6.20); Red Cell Distribution Width 13.2 % (11.5-17.5); White Blood Count 15.2 K/mm3 (4.8-10.8)
[2022-03-21 20:35] LABS: MANUAL DIFFERENTIAL MANUAL DIFFERENTIAL (MANUAL DIFF)
[2022-03-21 20:39] LABS: Anion Gap 13.2 mEq/L (5-15); Blood Urea Nitrogen 23 mg/dl (9-20); Calcium 9.3 mg/dl (8.4-10.2); Carbon Dioxide 29 mmol/L (22.0-30.0); Chloride 103 mmol/L (98-107); Creatinine Clearance Estimated 113 mL/min (50-200); Estimated Glomerular Filt Rate 86 ml/min (>60); GFR (African American) 103 ML/MIN (>60); Glucose 197 mg/dl (74-100); Potassium 4.2 mmoL/L (3.5-5.1); Sodium 141 mmol/L (136-145)
[2022-03-21 20:49] LABS: Hemoglobin A1C 5.6 % (4.0-6.0)
[2022-03-21 21:09] LABS: Erythrocyte Sedimentation Rate 8 mm/hr (0-20)
[2022-03-21 21:15] LABS: Lymphocytes % 9 % (10-50); Neutrophils % 89 % (42-76); Platelet Estimate Normal; RBC Morphology Normal; Total Cells Counted 100
[2022-03-21 21:34] VITALS: BP 161/98; PULSE 85; RESP 16; TEMP 37.1; O2SAT 96
== END 2022-03-21 21:37 | disposition home or self-care (01) ==
LOC: UTC 19:22 → ER 19:32
PROVIDERS: Emergency Medicine; Emergency Provider Emergency Medicine; PCP Family Medicine
DX: M54.50 Low back pain, unspecified (principal); M54.16 Radiculopathy, lumbar region; E11.9 Type 2 diabetes mellitus without complications; E78.5 Hyperlipidemia, unspecified; I10 Essential (primary) hypertension; Z72.0 Tobacco use; Z80.9 Family history of malignant neoplasm, unspecified; Z83.3 Family history of diabetes mellitus; Z82.3 Family history of stroke
CPT/HCPCS: 72110; 80048; 81001; 83036; 85007; 85025; 85651; 96374; 96375; 99284; J2405

== ENCOUNTER 2022-03-25 07:42 | Outpatient (RCR) | payer BC, SELFPAY | END 2022-03-25 07:45 | disposition home or self-care (01) | LOC: PT 07:42 | PROVIDERS: PCP Family Medicine; Visit Provider Family Medicine | DX: M54.16 Radiculopathy, lumbar region (principal) | CPT/HCPCS: 97163 ==

== ENCOUNTER 2022-05-10 14:00 | Emergency (ER) | payer BC, SELFPAY ==
[2022-05-10 14:22] VITALS: BP 180/102; PULSE 96; RESP 18; TEMP 37.1; O2SAT 96; BMI 35.5
--- NOTE | 2022-05-10 14:28 | HMH.EDUTC ---
[facility] Disposition Clinical Impression: Sinusitis Qualifiers: Sinusitis location: unspecified location Chronicity: unspecified Qualified Code(s): J32.9 - Chronic sinusitis, unspecified Disposition: Home, Self-Care Condition on Discharge: Good Instructions: Sinusitis, DI for Sinusitis Additional Instructions: *Monitor Temp, Over the counter Motrin or Tylenol as directed/as needed Tylenol every 4 hours and Motrin every 6 hours (as long as your family doctor has told you that you can take it) for fever or pain. and straight to ER if unable to lower temp less than 101.0 after medication given *Warm salt water gargles may help to soothe the throat *Throat Lozenges *Warm fluids like tea with honey may help to soothe the throat *Sleep elevated *Humidifier/Vaporizer Augmentin can cause GI effects. Probiotics may help to prevent these symptoms Follow up with family doctor if no improvement or any worsening of symptoms Follow up IMMEDIATELY for new or worsening symptoms or no Noticeable improvement over the next 48-72 hours. 911 for difficulty breathing or swallowing Prescriptions: Benzonatate [Benzonatate 100mg cap] 100 mg PO Q8HP PRN #30 cap PRN Reason: Cough Transmission Status: Pending to [facility] Amoxicillin/Potassium Clav [Amox-Clav 875-125 mg Tablet] 1 tab PO BID #14 tab Transmission Status: Pending to [facility] methylPREDNISolone [Medrol 4mg tab] 4 mg PO DIRECTED #21 tab Transmission Status: Pending to [facility] Referrals: Luis Ward MD [Primary Care Provider] - As needed Time of Disposition: 14:37 Medical Decision Making - Walt Inquiry Pt receiving controlled substance: No Walt was queried for this patient: No Vital Signs: 05/10/22 14:22 Temperature 98.7 F Temperature Source Oral Pulse Rate [Left] 96 H Respiratory Rate 18 Blood Pressure [Right Arm] 180/102 H Blood Pressure Mean [Right Arm] 128 02 Sat by Pulse Oximetry 96 Medical Decision Narrative: Patient states that he has taken medrol in the past without complications or reaction discussed f/u with PCP if blood pressure remains elevated [facility] HPI - General Stated complaint: sore throat, sneezing, cough, sinus pressure Time Seen by Provider: 05/10/22 14:28 Description of Symptoms (Recalled from Triage Doc. by RN): patient comes in for sinus drainage and cough. symptoms began about a month ago but yesterday got worse HEENT Symptoms (Recalled from RN notes): Yes Resp Symptoms (Recalled from RN notes): Yes Skin Symptoms (Recalled from RN notes): No MS Symptoms (Recalled from RN notes): No Functional Status (Recalled from RN notes): n/a - History of Present Illness Provider Complaint: Patient states that he has been having sinus problems for over a month on and off but got worse in the last 2-3 days State that he is having pain and pressure behind his eyes and upper gums and feels like he does when he has a sinus infection States that today he was still not feeling well so he came in to get checked - Related Data Home Medications Medication Instructions Recorded Confirmed Aspirin [Aspirin 81mg EC Tab] 81 mg PO DAILY 12/08/20 12/23/20 Atorvastatin Calcium [Lipitor 20mg 20 mg PO HS 12/08/20 12/23/20 Tab] Metformin HCl [Fortamet] 500 mg PO DAILY 12/08/20 12/23/20 lisinopriL [Lisinopril 20mg Tab] 20 mg PO DAILY 12/08/20 12/23/20 Previous Rx's Medication Instructions Recorded Amoxicillin/Potassium Clav 1 tab PO BID #14 tab 05/10/22 [Amox-Clav 875-125 mg Tablet] Benzonatate [Benzonatate 100mg 100 mg PO Q8HP PRN #30 cap 05/10/22 cap] methylPREDNISolone [Medrol 4mg 4 mg PO DIRECTED #21 tab 05/10/22 tab] Allergies Allergy/AdvReac Type Severity Reaction Status Date / Time No Known Allergies Allergy Verified 05/10/22 14:25 - Worker's Comp Is this a Worker's Comp case?: No [facility] History - Hepatitis A Screen Attestation statement:: This joanne
[2022-05-10 14:44] VITALS: BP 180/102; PULSE 96; RESP 18; TEMP 37.1
== END 2022-05-10 14:53 | disposition home or self-care (01) ==
PROVIDERS: Emergency Provider Nurse Practitioner; PCP Family Medicine
DX: J32.9 Chronic sinusitis, unspecified (principal)
CPT/HCPCS: 99212; G0463

== ENCOUNTER 2022-09-19 10:22 | Emergency (ER) | payer BC, SELFPAY ==
--- NOTE | 2022-09-19 12:40 | EXP.UTC ---
Discharge Plan Disposition Patient Disposition: Home, Self-Care Condition: Good Prescriptions Prescriptions: New azithromycin [Zithromax] 250 mg tablet 250 mg PO UD DOSE PK Qty: 6 0RF Rx Instructions: Take two (2) tablets today, then one (1) tablet days #2 thru #5 benzonatate [benzonatate] 100 mg capsule 100 mg PO TIDP PRN (Reason: Cough) Qty: 30 0RF methylprednisolone 4 mg Tablets,Dose Pack 4 mg PO DIRECTED Qty: 21 0RF oseltamivir [Tamiflu] 75 mg capsule 75 mg PO BID Qty: 10 0RF No Action atorvastatin 20 MG tablet 20 mg PO HS lisinopril 20 MG tablet 20 mg PO DAILY aspirin 81 MG tablet,delayed release (DR/EC) 81 mg PO DAILY metformin 500 MG tablet extended release 24hr 500 mg PO DAILY methylprednisolone 4 MG tablet 4 mg PO DIRECTED Qty: 21 0RF Rx Instructions: Take as directed on package instructions benzonatate 100 MG capsule 100 mg PO Q8HP PRN (Reason: Cough) Qty: 30 0RF amoxicillin-pot clavulanate 1 EACH tablet 1 tab PO BID Qty: 14 0RF Referrals Follow up/Referrals: Luis Ward MD [Primary Care Provider] - See instructions Activity Restrictions/Add. Instructions Additional Instructions/Restrictions: Drink plenty of fluids. Take tylenol or ibuprofen for pain or fever. Take the medications as directed. Follow up with your regular doctor. GO TO THE ER FOR ANY WORSENING SYMPTOMS Clinical Impressions Clinical Impression: Bronchitis, Viral syndrome Stand Alone Forms Stand Alone Forms: Work/School Release Instructions Patient Instructions: DI for Acute Bronchitis, DI for Viral Syndrome Discharge ED Provider: Irving Madrid [facility] General Stated complaint: Congestion,cough Time Seen by Provider: 09/19/22 12:40 History of Present Illness Provider Complaint: He states that for the past 1 day he has had body aches, chills, fever and malaise. HE has a productive cough with greenish sputum also. Related Data Home Medications Medication Instructions Recorded Confirmed aspirin 81 mg tablet,delayed 81 mg PO DAILY Supplement 12/08/20 05/10/22 release atorvastatin 20 mg tablet 20 mg PO HS Cholesterol 12/08/20 05/10/22 lisinopril 20 mg tablet 20 mg PO DAILY bp 12/08/20 05/10/22 metformin 500 mg tablet,extended 500 mg PO DAILY Diabetes 12/08/20 05/10/22 release 24hr Previous Rx's Medication Instructions Recorded amoxicillin 875 mg-potassium 1 tab PO BID #14 tabs 05/10/22 clavulanate 125 mg tablet benzonatate 100 mg capsule 100 mg PO Q8HP PRN Cough #30 caps 05/10/22 methylprednisolone 4 mg tablet 4 mg PO DIRECTED #21 tabs 05/10/22 azithromycin 250 mg tablet 250 mg PO UD DOSE PK #6 tabs 09/19/22 (Zithromax) benzonatate 100 mg capsule 100 mg PO TIDP PRN Cough #30 caps 09/19/22 methylprednisolone 4 mg tablets in 4 mg PO DIRECTED #21 tabs 09/19/22 a dose pack oseltamivir 75 mg capsule (Tamiflu) 75 mg PO BID #10 caps 09/19/22 Allergies Allergy/AdvReac Type Severity Reaction Status Date / Time No Known Allergies Allergy Verified 09/19/22 13:04 PFSH PFS Social History Smoking Status: Current every day smoker tobacco type: smokeless tobacco second hand exposure: No alcohol intake: never current occupational status: employed Travel in the last 8 weeks: None household members: spouse and family housing: house current occupation: [employer] current occupational exposures/hazards: No caffeine: Yes ROS Obtained: Yes All systems reviewed & no additional complaints except as documented Constitutional Constitutional: Reports chills and Reports fever(s) Eyes Eyes: Denies eye discharge ENT Ears, Nose, Mouth, and Throat: Reports as per HPI Cardiovascular Cardiovascular: Denies chest pain Respiratory Respiratory: Denies chest congestion and Reports cough Gastrointestinal Gastrointestingal: Reports n
[2022-09-19 13:00] LABS: UTC Strep Screen (Rapid) Negative (Negative)
[2022-09-19 13:01] LABS: UTC Influenza A Antigen Negative (Negative); UTC Influenza B Antigen Negative (Negative)
[2022-09-19 13:03] VITALS: BP 124/74; PULSE 101; RESP 18; TEMP 37.4; O2SAT 95; BMI 36.9
[2022-09-19 13:21] VITALS: BP 124/74; PULSE 101; RESP 18; TEMP 37.4
[2022-09-19 13:21] LABS: Adenovirus,PCR Not Detected (NotDetected); Bordetella Pertussis Not Detected (NotDetected); Chlamydophila Pneumoniae, PCR Not Detected (NotDetected); Coronavirus 19, PCR Not Detected (NotDetected); Coronavirus 229E Not Detected (NotDetected); Coronavirus NL63 Not Detected (NotDetected); Coronavirus OC43 Not Detected (NotDetected); Coronovirus HKU1,PCR Not Detected (NotDetected); Human Metapneumovirus Not Detected (NotDetected); Influenza A, PCR Not Detected (NotDetected); Influenza AH1, PCR Not Detected (NotDetected); Influenza AH3,PCR Not Detected (NotDetected); Influenza B, PCR Not Detected (NotDetected); Mycoplasma Pneumoniae, PCR Not Detected (NotDetected); Parainfluenza 1, PCR Not Detected (NotDetected); Parainfluenza 2, PCR Not Detected (NotDetected); Parainfluenza 3, PCR Not Detected (NotDetected); Parainfluenza 4, PCR Not Detected (NotDetected); Respiratory Syncytial Virus Not Detected (NotDetected); Rhinovirus/Enterovirus Not Detected (NotDetected)
[2022-09-19 15:18] LABS: Influenza AH1, 2009 Detected (NotDetected)
--- NOTE | 2022-09-19 19:09 | PC.NURSE ---
pt notified of respiratory panel results
== END 2022-09-19 13:22 | disposition home or self-care (01) ==
PROVIDERS: Emergency Provider Nurse Practitioner Family; PCP Family Medicine
DX: J10.1 Influenza due to other identified influenza virus with other respiratory manifestations (principal); R50.9 Fever, unspecified; R11.0 Nausea; R05.9 Cough, unspecified; R53.81 Other malaise; Z20.822 Contact with and (suspected) exposure to COVID-19; M79.10 Myalgia, unspecified site; R09.89 Other specified symptoms and signs involving the circulatory and respiratory systems; F17.290 Nicotine dependence, other tobacco product, uncomplicated; Z79.52 Long term (current) use of systemic steroids; Z79.899 Other long term (current) drug therapy
CPT/HCPCS: 87581; 87632; 87798; 87804; 87880; 99213; C9803; G0463; U0003; U0005

== ENCOUNTER 2023-03-19 09:51 | Emergency (ER) | payer BC, SELFPAY ==
[2023-03-19 10:05] VITALS: BP 178/102; PULSE 71; RESP 18; TEMP 36.8; O2SAT 97; BMI 36.8
[2023-03-19 10:14] LABS: UTC Strep Screen (Rapid) Negative (Negative)
--- NOTE | 2023-03-19 10:14 | EXP.UTC ---
Discharge Plan Disposition Patient Disposition: Home, Self-Care Condition: Good Prescriptions Prescriptions: New cetirizine [Zyrtec] 10 mg tablet 10 mg PO DAILY Qty: 30 2RF benzonatate 100 mg capsule 100 mg PO TID PRN (Reason: cough) Qty: 60 0RF azithromycin 250 mg tablet See Rx Instructions .ROUTE .COMPLEX Qty: 6 0RF Rx Instructions: For 250 mg dose pack: take 500 mg today (day 1), then 250 mg for 4 days (days 2-5) No Action atorvastatin 20 MG tablet 20 mg PO HS lisinopril 20 MG tablet 20 mg PO DAILY aspirin 81 MG tablet,delayed release (DR/EC) 81 mg PO DAILY metformin 500 MG tablet extended release 24hr 500 mg PO DAILY Referrals Follow up/Referrals: Luis Ward MD [Primary Care Provider] - See instructions Activity Restrictions/Add. Instructions Additional Instructions/Restrictions: If symptoms persist for over a week, may start antibiotic. Clinical Impressions Clinical Impression: Upper respiratory tract infection Instructions Patient Instructions: DI for Viral Upper Respiratory Infection -- Adult Discharge ED Provider: Etta Soto [facility] HPI General Stated complaint: Sore throat,Congestion Mode of Arrival: Ambulatory Source of Information: Patient Limitations: No Limitations Time Seen by Provider: 03/19/23 10:10 Description of Symptoms (Recalled from Triage Doc. by RN): pt reports drainage and sore throat since Tuesday HEENT Symptoms (Recalled from RN notes): Yes (sore throat) Resp Symptoms (Recalled from RN notes): No Skin Symptoms (Recalled from RN notes): No MS Symptoms (Recalled from RN notes): No Functional Status (Recalled from RN notes): wnl History of Present Illness Provider Complaint: Pt reports that he hasn't felt well since Tuesday. He reports a lot of sinus pressure, drainage, and dry cough. He denies taking anything for his symptoms. Related Data Home Medications Medication Instructions Recorded Confirmed aspirin 81 mg tablet,delayed 81 mg PO DAILY Supplement 12/08/20 05/10/22 release atorvastatin 20 mg tablet 20 mg PO HS Cholesterol 12/08/20 05/10/22 lisinopril 20 mg tablet 20 mg PO DAILY bp 12/08/20 05/10/22 metformin 500 mg tablet,extended 500 mg PO DAILY Diabetes 12/08/20 05/10/22 release 24hr Previous Rx's Medication Instructions Recorded azithromycin 250 mg tablet See Rx Instructions PO .COMPLEX #6 03/19/23 tabs benzonatate 100 mg capsule 100 mg PO TID PRN cough #60 caps 03/19/23 cetirizine 10 mg tablet (Zyrtec) 10 mg PO DAILY #30 tabs 03/19/23 Allergies Allergy/AdvReac Type Severity Reaction Status Date / Time No Known Allergies Allergy Verified 03/19/23 10:10 Worker's Comp Is this a Worker's Comp case?: No Is this an [facility] Worker's Comp?: No Is this a [place] Worker's Comp?: No [facility] Disclaimer: The information contained in this section may have been updated after the patient was seen, as this information can be updated by other users. Social History Smoking Status: Current every day smoker tobacco type: smokeless tobacco second hand exposure: No alcohol intake: never current occupational status: employed Travel in the last 8 weeks: None household members: spouse and family housing: house current occupation: [employer] current occupational exposures/hazards: No caffeine: Yes ROS Obtained: Yes All systems reviewed & no additional complaints except as documented Constitutional Constitutional: Reports system reviewed and no additional complaints, except as documented Eyes Eyes: Reports system reviewed and no additional complaints, except as documented ENT Ears, Nose, Mouth, and Throat: Reports system reviewed and no additional complaints, except as documented, Reports nasal congestion, Reports nasal discharge, Reports odynophagia, Reports post nasal drip and Reports sore throat Cardiovascular Card
[2023-03-19 10:29] VITALS: BP 132/90
[2023-03-19 10:35] VITALS: BP 132/90; PULSE 70; RESP 16; TEMP 36.8; O2SAT 98
== END 2023-03-19 10:35 | disposition home or self-care (01) ==
PROVIDERS: Emergency Provider Nurse Practitioner Family; PCP Family Medicine
DX: J06.9 Acute upper respiratory infection, unspecified (principal); R05.9 Cough, unspecified; F17.290 Nicotine dependence, other tobacco product, uncomplicated
CPT/HCPCS: 87880; 99212; 99214; G0463

== ENCOUNTER 2023-05-16 09:23 | Emergency (ER) | payer BC, SELFPAY ==
[2023-05-16 09:41] VITALS: BP 149/90; PULSE 86; RESP 18; TEMP 37; O2SAT 98; BMI 31.4
--- NOTE | 2023-05-16 10:03 | EXP.UTC ---
Discharge Plan Disposition Patient Disposition: Home, Self-Care Condition: Good Prescriptions Prescriptions: New methocarbamol 500 mg tablet 500 mg PO TID PRN (Reason: muscle spasm) Qty: 12 0RF No Action atorvastatin 20 MG tablet 20 mg PO HS lisinopril 20 MG tablet 20 mg PO DAILY aspirin 81 MG tablet,delayed release (DR/EC) 81 mg PO DAILY metformin 500 MG tablet extended release 24hr 500 mg PO DAILY cetirizine [Zyrtec] 10 mg tablet 10 mg PO DAILY Qty: 30 2RF benzonatate 100 mg capsule 100 mg PO TID PRN (Reason: cough) Qty: 60 0RF azithromycin 250 mg tablet See Rx Instructions .ROUTE .COMPLEX Qty: 6 0RF Rx Instructions: For 250 mg dose pack: take 500 mg today (day 1), then 250 mg for 4 days (days 2-5) Referrals Follow up/Referrals: Luis Ward MD [Primary Care Provider] - See instructions Activity Restrictions/Add. Instructions Additional Instructions/Restrictions: Solu medrol injection may elevate your blood sugar for the next couple of days but then should return to your baseline blood sugar Take muscle relaxer as prescribed Over the counter Motrin and/or Tylenol as directed on package Do your exercises as instructed for sciatica pain Return if needed Straight to ER if any life threatening symptoms Clinical Impressions Clinical Impression: Low back pain with sciatica Qualifiers: Chronicity: unspecified Back pain laterality: right Sciatica laterality: sciatica of right side Qualified Code(s): M54.41 - Lumbago with sciatica, right side Instructions Patient Instructions: Sciatica, DI for Sciatica, DI for Back Pain With Sciatica Discharge ED Provider: Taylor Fisher [facility] General Stated complaint: [id number] pain in Rt leg and hip Mode of Arrival: Ambulatory Source of Information: Patient Limitations: No Limitations Time Seen by Provider: 05/16/23 10:03 Description of Symptoms (Recalled from Triage Doc. by RN): PATIENT C/O RIGHT HIP AND LEG PAIN THAT STARTED LAST NIGHT HEENT Symptoms (Recalled from RN notes): No Resp Symptoms (Recalled from RN notes): No Skin Symptoms (Recalled from RN notes): No MS Symptoms (Recalled from RN notes): Yes Functional Status (Recalled from RN notes): WNL History of Present Illness Provider Complaint: Patient states that he has a history of sciatica States that last night getting out of the tub he slipped and caught himself from falling but states that he has aggravated his sciatica and has been having pain in his right hip going down into his leg like he has had before with sciatica States that last time he had this he got some steriods and it helped States that he is a diabetic but it is controlled with medication Related Data Home Medications Medication Instructions Recorded Confirmed aspirin 81 mg tablet,delayed 81 mg PO DAILY Supplement 12/08/20 05/10/22 release atorvastatin 20 mg tablet 20 mg PO HS Cholesterol 12/08/20 05/10/22 lisinopril 20 mg tablet 20 mg PO DAILY bp 12/08/20 05/10/22 metformin 500 mg tablet,extended 500 mg PO DAILY Diabetes 12/08/20 05/10/22 release 24hr Previous Rx's Medication Instructions Recorded azithromycin 250 mg tablet See Rx Instructions PO .COMPLEX #6 03/19/23 tabs benzonatate 100 mg capsule 100 mg PO TID PRN cough #60 caps 03/19/23 cetirizine 10 mg tablet (Zyrtec) 10 mg PO DAILY #30 tabs 03/19/23 methocarbamol 500 mg tablet 500 mg PO TID PRN muscle spasm #12 05/16/23 tabs Allergies Allergy/AdvReac Type Severity Reaction Status Date / Time No Known Allergies Allergy Verified 03/19/23 10:10 Worker's Comp Is this a Worker's Comp case?: No [facility] Disclaimer: The information contained in this section may have been updated after the patient was seen, as this information can be updated by other users. Medical History (Updated 05/16/23 @ 10:18 by Taylor Fisher APRN) Diabetes GERD (gastroesophageal reflux disease) Surgical History (Upd
[2023-05-16 10:20] VITALS: BP 149/90; PULSE 86; RESP 18; TEMP 37; O2SAT 98
== END 2023-05-16 10:37 | disposition home or self-care (01) ==
PROVIDERS: Emergency Provider Nurse Practitioner; PCP Family Medicine
DX: M54.41 Lumbago with sciatica, right side (principal); E11.9 Type 2 diabetes mellitus without complications; K21.9 Gastro-esophageal reflux disease without esophagitis; F17.220 Nicotine dependence, chewing tobacco, uncomplicated; Z79.84 Long term (current) use of oral hypoglycemic drugs; W18.2XXA Fall in (into) shower or empty bathtub, initial encounter
CPT/HCPCS: 96372; 99212; 99214; G0463

== ENCOUNTER 2023-11-04 12:55 | Emergency (ER) | payer BC, SELFPAY ==
[2023-11-04 12:56] VITALS: BP 164/96; PULSE 78; RESP 18; TEMP 36.6; O2SAT 96; BMI 35.5
--- NOTE | 2023-11-04 13:02 | PC.NURSE ---
DR BAUTISTA AT BEDSIDE
--- NOTE | 2023-11-04 13:06 | CT_ITS ---
FINAL REPORT TECHNIQUE: Postcontrast axial images through the abdomen and pelvis were performed. This study was performed with techniques to keep radiation doses as low as reasonably achievable, (ALARA). Individualized dose reduction techniques using automated exposure control or adjustment of mA and/or kV according to the patient's size were employed. CLINICAL HISTORY: suprapubic pain sharp, diarrhea FINDINGS: Abdomen: The lung bases are clear. The liver is normal in size and attenuation. The patient is status post cholecystectomy. The spleen is unremarkable. The adrenals are normal. The pancreas is unremarkable. The kidneys enhance appropriately. The aorta is normal in caliber. No free fluid or adenopathy is identified. There is mild bilateral hydronephrosis and hydroureter. Pelvis: The appendix is not identified. The urinary bladder is moderately distended. There is an umbilical hernia containing fat. There are also small inguinal hernias containing fat. No free fluid, free air, abscess or adenopathy is identified. IMPRESSION: Mild bilateral hydronephrosis and hydroureter. Umbilical and inguinal hernias as detailed above. Reviewed, Interpreted and Dictated by Juan Gupta III, MD Transcribed by Danyell Veliz Authenticated and [facility]
--- NOTE | 2023-11-04 13:10 | ED_ITS ---
Discharge Plan Disposition Patient Disposition: Home, Self-Care Chief Complaint: Abdominal Pain Prescriptions Prescriptions: No Action atorvastatin 20 MG tablet 20 mg PO HS lisinopril 20 MG tablet 20 mg PO DAILY aspirin 81 MG tablet,delayed release (DR/EC) 81 mg PO DAILY metformin 500 MG tablet extended release 24hr 500 mg PO DAILY cetirizine [Zyrtec] 10 mg tablet 10 mg PO DAILY Qty: 30 2RF benzonatate 100 mg capsule 100 mg PO TID PRN (Reason: cough) Qty: 60 0RF azithromycin 250 mg tablet See Rx Instructions .ROUTE .COMPLEX Qty: 6 0RF Rx Instructions: For 250 mg dose pack: take 500 mg today (day 1), then 250 mg for 4 days (days 2-5) methocarbamol 500 mg tablet 500 mg PO TID PRN (Reason: muscle spasm) Qty: 12 0RF Referrals Follow up/Referrals: Duncan Rodriguez MD [Staff Physician] - See instructions Luis Ward MD [Primary Care Provider] - See instructions Activity Restrictions/Add. Instructions Additional Instructions/Restrictions: At this time it was felt you are safe to be discharged home. If new or worsening symptoms please do not hesitate to return the emergency department. Please call and schedule an appointment with Dr. Rodriguez as soon as you are able. Clinical Impressions Clinical Impression: Urinary retention, Abdominal pain Discharge ED Provider: Elias Ray General Adult HPI General Chief complaint: Abdominal Pain Stated complaint: adominal pain Time Seen by Provider: 11/04/23 12:57 Mode of Arrival: Ambulatory Source of Information: Patient Limitations: No Limitations Description of Symptoms (Recalled from ER Triage Doc. by RN): PT REPORTS INTERMITTENT ABDOMINAL PAIN AT BELT LINE THAT STARTED ABOUT 0900. REPORTS NAUSEA TODAY. DENIES FEVER OR CHILLS History of Present Illness HPI narrative: Patient is a 62-year-old male with past medical history of hypertension, hyperlipidemia, [id number] diabetes who presents emergency department for evaluation of abdominal pain. Onset was 9 AM, sharp, about his suprapubic area. Patient has had associated diarrhea over the last week. He previously had chronic diarrhea that was nonbloody secondary to metformin which she self discontinued weeks ago. No vomiting however there is associated nausea. No other acute complaints at this time. Related Data Home Medications Medication Instructions Recorded Confirmed aspirin 81 mg tablet,delayed 81 mg PO DAILY Supplement 12/08/20 05/10/22 release atorvastatin 20 mg tablet 20 mg PO HS Cholesterol 12/08/20 05/10/22 lisinopril 20 mg tablet 20 mg PO DAILY bp 12/08/20 05/10/22 metformin 500 mg tablet,extended 500 mg PO DAILY Diabetes 12/08/20 05/10/22 release 24hr (osmotic) Previous Rx's Medication Instructions Recorded azithromycin 250 mg tablet See Rx Instructions PO .COMPLEX #6 03/19/23 tabs benzonatate 100 mg capsule 100 mg PO TID PRN cough #60 caps 03/19/23 cetirizine 10 mg tablet (Zyrtec) 10 mg PO DAILY #30 tabs 03/19/23 methocarbamol 500 mg tablet 500 mg PO TID PRN muscle spasm #12 05/16/23 tabs Allergies Allergy/AdvReac Type Severity Reaction Status Date / Time No Known Allergies Allergy Verified 03/19/23 10:10 [facility] Disclaimer: The information contained in this section may have been updated after the patient was seen, as this information can be updated by other users. Medical History (Updated 11/04/23 @ 15:12 by Elias Ray MD) Diabetes GERD (gastroesophageal reflux disease) Surgical History (Updated 05/16/23 @ 09:47 by Kelli Costa RN) History of cardiac cath History of cholecystectomy Social History Smoking Status: Current every day smoker tobacco type: smokeless tobacco second hand exposure: No alcohol intake: never current occupational status: employed Travel in the last 8 weeks: None household members: spouse and family housing: house current occupation: [employer] current occupational exposures/hazards: No caffeine: Yes ROS Obtained: Yes Systems reviewed as appropriate & no additional complaints except as documented Physical Exam General General appearance: alert and in no apparent distress Head Head exam: atraumatic and normocephalic Eye Eye exam: Present PERRL and EOMI ENT ENT exam: Present mucous membranes moist Neck Neck exam: Present normal inspection Chest Chest inspection: Present normal inspection and symmetric chest wall rise Respiratory Respiratory exam: Present normal lung sounds bilaterally; Absent respiratory distress Cardiovascular Cardiovascular exam: Present regular rate and normal rhythm Abdominal Exam Abdominal exam: Present soft; Absent tenderness Extremities Exam Extremities exam: Present normal inspection Neurological Exam Neurological exam: Present alert Psychiatric Psychiatric exam: Present normal affect Skin Skin exam: Present warm and dry Medical Decision Making Walt Inquiry Pt receiving controlled substance: No Vital Signs: 11/04/23 12:56 Temperature 97.9 F Temperature Source Oral Pulse Rate [Radial] 78 Respiratory Rate 18 Blood Pressure [Right Arm] 164/96 H Blood Pressure Mean [Right Arm] 118 Blood Pressure Source [Right Arm] Automatic Cuff Blood Pressure Position [Right Arm] Sitting 02 Sat by Pulse Oximetry 96 Oxygen Delivery Method Room Air Lab Data Lab Results 11/04/23 13:06: Urine Color Yellow, Urine Appearance Clear, Urine pH 6.0, Ur Specific [place] <= 1.005, Urine Protein Negative, Urine Glucose (UA) Negative, Urine Ketones Negative, Urine Blood Negative, Urine Nitrate Negative, Urine Bilirubin Negative, Urine Urobilinogen 0.2, Ur Leukocyte Esterase Negative, Urine RBC None, Urine WBC None, Ur Squamous Epith Cells Occasional, Urine Bacteria None 11/04/23 13:14: WBC 7.7, RBC 5.00, Hgb 16.3, Hct 46.5, MCV 92.9, MCH 32.6 H, MCHC 35.2, RDW 13.4, Plt Count 220, MPV 8.4, Neut % (Auto) 55.4, Lymph % (Auto) 33.8, [place] % (Auto) 7.2, Eos % (Auto) 2.5, Baso % (Auto) 1.1, Neut # (Auto) 4.3, Lymph # (Auto) 2.6, [place] # (Auto) 0.6, Eos # (Auto) 0.2, Baso # (Auto) 0.1, Sodium 141, Potassium 3.5, Chloride 104, Carbon Dioxide 30, Anion Gap 10.5, BUN 19, Creatinine 1.00, Estimated Creat Clear 107, Estimated GFR 75, Est GFR (Afric an Amer) 91, Glucose 90, Calcium 8.7, Magnesium 1.7, Total Bilirubin 0.6, AST 44, ALT 36, Alkaline Phosphatase 125, Total Protein 7.5, Albumin 4.2, Globulin 3.3 H, Albumin/Globulin Ratio 1.3, Lipase 140 11/04/23 13:18: SARS-CoV-2 (PCR) Not detected, Influenza A Untype (PCR) Not detected, Influenza Type B (PCR) Not detected 11/04/23 13:14 11/04/23 13:14 Orders (Tests/Meds): ED MEDICATIONS Discontinued Medications Generic Name Dose Route Start Last Admin Trade Name Roberta PRN Reason Stop Dose Admin Acetaminophen 1,000 mg 11/04/23 13:14 11/04/23 13:24 Acetaminophen 1,000mg/100ml Vial IV 11/04/23 13:15 1,000 mg ONCE ONE Administration Iopamidol 75 ml 11/04/23 14:08 11/04/23 14:09 Iopamidol-370 (76%);100ml Bottle IV 11/04/23 14:09 75 ml ONCE ONE Administration Ondansetron HCl 4 mg 11/04/23 13:14 11/04/23 13:24 Ondansetron 4mg/2ml Vial IV 11/04/23 13:15 4 mg ONCE ONE Administration Sodium Chloride 10 ml 11/04/23 14:08 11/04/23 14:09 Sodium Chloride 0.9% 10ml Syr (Rad Only) IV 11/04/23 14:09 10 ml ONCE ONE Administration ORDERS Category Date Time Status CT abdomen pelvis w con Stat Cat Scan 11/04/23 13:06 Completed CBC w/Auto Diff [Complete Blood Count Auto Diff] Stat Lab 11/04/23 13:14 Completed CMP [Comprehensive Metabolic Panel] Stat Lab 11/04/23 13:14 Completed Lipase Stat Lab 11/04/23 13:14 Completed MG [Magnesium] Stat Lab 11/04/23 13:14 Completed Rapid PCR Covid and Flu A/B Stat Lab 11/04/23 13:18 Completed UA [Urinalysis and Microscopic] Stat Lab 11/04/23 13:06 Completed Medical Decision Narrative: In summary patient is 62-year-old male past medical history described above presents emergency department for evaluation abdominal pain. Patient is hemodynamically stable nontoxic-appearing upon arrival, afebrile. Differential diagnosis includes abdominal mass, cystitis, diverticulitis, among others. Workup will be conducted with hematologic labs, CT of the abdomen pelvis IV contrast. Initial interventions include IV Tylenol, Zofran. Reviewed by me, hematologic labs are nonactionable, no leukocytosis or AL. Urinalysis interpreted by me and not consistent with infection. Patient is COVID-negative. CT imaging informally interpreted by me and shows significantly enlarged bladder with hydro, no obvious large stone obstruction. Postvoid residual 216 mL. Patient has no signs or symptoms concerning for spinal cord compression syndrome. CT imaging shows bilateral hydronephrosis and hydroureter. Inc idental umbilical and inguinal hernias for which patient is currently asymptomatic and do not contain loops of bowel. Upon repeat evaluation patient was offered Perez catheter for decompression at bedside for which she declined. Given this patient will be started on Flomax and will schedule an outpatient appointment with Dr. Rodriguez and was given return precautions. Critical Care Critical Care Time Critical Care Time: No
[2023-11-04 13:12] LABS: Microscopic, Urine URINE MICROSCOPIC (MICROSCOPIC)
[2023-11-04 13:14] LABS: Appearance,Urine CLEAR (Clear); Bilirubin,Urine Negative (Negative); Blood, Urine Negative (Negative); Color,Urine YELLOW (Yellow); Glucose,Urine (UA) Negative (Negative); Ketones,Urine Negative (Negative); Leukocyte Esterase,Urine Negative (Negative); Nitrate,Urine Negative (Negative); Protein,Urine Negative (Negative); Specific Gravity, Urine <= 1.005 (1.005-1.030); Urobilinogen,Urine 0.2 EU/dl (0.2)
[2023-11-04 13:24] LABS: Coronavirus 19, PCR Not Detected (NotDetected); Influenza A, PCR Not Detected (NotDetected); Influenza B, PCR Not Detected (NotDetected)
[2023-11-04] MEDS: ACETAMINOPHEN 1,000MG/100ML VIAL 1000 MG IV (13:24)
[2023-11-04] MEDS: ONDANSETRON 4MG/2ML VIAL 4 MG IV (13:24)
[2023-11-04 13:27] LABS: Squamous Epithelial Cell,Urine Occasional #/hpf (0-5)
[2023-11-04 13:29] LABS: Basophils # 0.1 K/mm3 (0-0.2); Basophils % 1.1 % (0.1-2.0); Eosinophils # 0.2 K/mm3 (0.0-0.4); Eosinophils % 2.5 % (0.1-12.0); Hematocrit 46.5 % (42.0-52.0); Hemoglobin 16.3 g/dL (14.1-18.0); Lymphocytes # 2.6 K/mm3 (0.7-4.5); Lymphocytes % 33.8 % (10-50); Mean Corpuscular HGB Conc 35.2 g/dL (31.8-35.4); Mean Corpuscular Hemoglobin 32.6 pg (27.0-31.2); Mean Corpuscular Volume 92.9 fl (80-94); Mean Platelet Volume 8.4 fl (7.4-10.4); Monocytes # 0.6 K/mm3 (0.1-1.0); Monocytes % 7.2 % (1.7-9.3); Neutrophils # 4.3 K/mm3 (1.8-7.8); Neutrophils % 55.4 % (37.0-80.0); Platelet Count 220 K/mm3 (142-424); Red Cell Distribution Width 13.4 % (11.5-17.5); White Blood Count 7.7 K/mm3 (4.8-10.8)
[2023-11-04 13:34] LABS: Chloride 104 mmol/L (98-107); Potassium 3.5 mmoL/L (3.5-5.1); Sodium 141 mmol/L (136-145)
[2023-11-04 13:36] LABS: Alanine Aminotransferase 36 U/L (12-78); Blood Urea Nitrogen 19 mg/dl (9-20); Creatinine Clearance Estimated 107 mL/min (50-200); Estimated Glomerular Filt Rate 75 ml/min (>60); GFR (African American) 91 ML/MIN (>60)
[2023-11-04 13:37] LABS: Albumin Level 4.2 g/dl (3.5-5.0); Albumin/Globulin Ratio 1.3 (1.1-1.8); Alkaline Phosphatase 125 U/L (38-126); Anion Gap 10.5 mEq/L (5-15); Aspartate Amino Transferase 44 U/L (17-59); Bilirubin,Total 0.6 mg/dl (0.2-1.3); Calcium 8.7 mg/dl (8.4-10.2); Carbon Dioxide 30 mmol/L (22.0-30.0); Globulin 3.3 g/dL (1.3-3.2); Glucose 90 mg/dl (74-100); Lipase 140 U/L (23-300); Total Protein,Serum 7.5 g/dl (6.3-8.2)
[2023-11-04] MEDS: IOPAMIDOL-370 (76%);100ML BOTTLE 75 ML IV (14:09)
[2023-11-04] MEDS: SODIUM CHLORIDE 0.9% 10ML SYR (RAD ONLY) 10 ML IV (14:09)
--- NOTE | 2023-11-04 14:30 | PC.NURSE ---
POST VOID 216ML
[2023-11-04 14:38] LABS: Magnesium 1.7 mg/dl (1.6-2.3)
[2023-11-04 15:40] VITALS: BP 159/95; PULSE 70; RESP 18; TEMP 36.7; O2SAT 95
== END 2023-11-04 15:40 | disposition home or self-care (01) ==
PROVIDERS: Emergency Provider Emergency Medicine; PCP Family Medicine
DX: R10.30 Lower abdominal pain, unspecified (principal); R33.9 Retention of urine, unspecified; E11.9 Type 2 diabetes mellitus without complications; I10 Essential (primary) hypertension; E78.5 Hyperlipidemia, unspecified; R19.7 Diarrhea, unspecified; F17.290 Nicotine dependence, other tobacco product, uncomplicated
CPT/HCPCS: 74177; 80053; 81001; 83690; 83735; 85025; 87636; 96374; 96375; 99285; J0131; J2405; Q9967

== ENCOUNTER 2023-12-22 08:01 | Emergency (ER) | payer BC, SELFPAY ==
--- NOTE | 2023-12-22 08:28 | ED_ITS ---
Discharge Plan Disposition Patient Disposition: Home, Self-Care Condition: Good Prescriptions Prescriptions: No Action tamsulosin [Flomax] 0.4 mg capsule 0.4 mg PO DAILY 90 Days Qty: 90 1RF atorvastatin 20 MG tablet 20 mg PO HS lisinopril 20 MG tablet 20 mg PO DAILY aspirin 81 MG tablet,delayed release (DR/EC) 81 mg PO DAILY metformin 500 MG tablet extended release 24hr 500 mg PO DAILY cetirizine [Zyrtec] 10 mg tablet 10 mg PO DAILY Qty: 30 2RF benzonatate 100 mg capsule 100 mg PO TID PRN (Reason: cough) Qty: 60 0RF azithromycin 250 mg tablet See Rx Instructions .ROUTE .COMPLEX Qty: 6 0RF Rx Instructions: For 250 mg dose pack: take 500 mg today (day 1), then 250 mg for 4 days (days 2-5) methocarbamol 500 mg tablet 500 mg PO TID PRN (Reason: muscle spasm) Qty: 12 0RF Referrals Follow up/Referrals: Luis Ward MD [Primary Care Provider] - See instructions Activity Restrictions/Add. Instructions Additional Instructions/Restrictions: Coricidin HBP may help with sinus drainage speak with your Pharmacist to see if it is safe for you to take with your Medications Continue Amoxicillin Over the counter Motrin and/or Tylenol for pain Follow up with your Dentist and Family Doctor Clinical Impressions Clinical Impression: Encounter to obtain excuse from work Stand Alone Forms Stand Alone Forms: Work/School Release Instructions Patient Instructions: DI for Tooth Abscess, DI for Dental Pain, DI for Nasal Congestion Discharge ED Provider: Taylor Fisher [facility] General Stated complaint: headache, drainage Time Seen by Provider: 12/22/23 08:28 History of Present Illness Provider Complaint: Patient states that he has 2 infected teeth that he seen the dentist for yesterday and started him on antibiotics States he has been taking it and it has caused his sinuses to start draining and he was up all night last night with pain in the tooth and the drainage and was unable to go to work today so he came in to get a note for work Related Data Home Medications Medication Instructions Recorded Confirmed aspirin 81 mg tablet,delayed 81 mg PO DAILY Supplement 12/08/20 11/28/23 release atorvastatin 20 mg tablet 20 mg PO HS Cholesterol 12/08/20 11/28/23 lisinopril 20 mg tablet 20 mg PO DAILY bp 12/08/20 11/28/23 metformin 500 mg tablet,extended 500 mg PO DAILY Diabetes 12/08/20 11/28/23 release 24hr (osmotic) Previous Rx's Medication Instructions Recorded azithromycin 250 mg tablet See Rx Instructions PO .COMPLEX #6 03/19/23 tabs benzonatate 100 mg capsule 100 mg PO TID PRN cough #60 caps 03/19/23 cetirizine 10 mg tablet (Zyrtec) 10 mg PO DAILY #30 tabs 03/19/23 methocarbamol 500 mg tablet 500 mg PO TID PRN muscle spasm #12 05/16/23 tabs tamsulosin 0.4 mg capsule (Flomax) 0.4 mg PO DAILY 90 days #90 caps 11/28/23 Allergies Allergy/AdvReac Type Severity Reaction Status Date / Time No Known Allergies Allergy Verified 11/28/23 10:42 [facility] Disclaimer: The information contained in this section may have been updated after the patient was seen, as this information can be updated by other users. Medical History Diabetes GERD (gastroesophageal reflux disease) Surgical History History of cardiac cath History of cholecystectomy Social History Smoking Status: Current every day smoker tobacco type: smokeless tobacco second hand exposure: No alcohol intake: never current occupational status: employed Travel in the last 8 weeks: None household members: spouse and family housing: house current occupation: [employer] current occupational exposures/hazards: No caffeine: Yes ROS Obtained: Yes All systems reviewed & no additional complaints except as documented and Yes Systems reviewed as appropriate & no additional complaints except as documented Constitutional Constitutional: Reports system reviewed and no additional complaints, except as documented and Reports as per HPI ENT Ears, Nose, Mouth, and Throat: Reports system reviewed and no additional complaints, except as documented, Reports as per HPI, Reports nasal discharge, Reports post nasal drip and Reports other (on antibiotics for dental infection) Cardiovascular Cardiovascular: Reports system reviewed and no additional complaints, except as documented and Reports as per HPI Respiratory Respiratory: Reports system reviewed and no additional complaints, except as documented and Reports as per HPI Gastrointestinal Gastrointestingal: Reports system reviewed and no additional complaints, except as documented and as per HPI Physical Exam General General appearance: alert and in no apparent distress ENT ENT exam: Present mucous membranes moist Expanded ENT Exam Nose exam: Absent sinus tenderness Respiratory Respiratory exam: Present normal lung sounds bilaterally; Absent respiratory distress or wheezes Cardiovascular Cardiovascular exam: Present regular rate, normal rhythm and normal heart sounds Neurological Exam Neurological exam: Present alert, oriented X3 and normal gait Medical Decision Making Walt Inquiry Pt receiving controlled substance: No Walt was queried for this patient: No
[2023-12-22 08:29] VITALS: BP 145/83; PULSE 86; RESP 21; TEMP 36.7; O2SAT 96; BMI 35.2
[2023-12-22 08:40] VITALS: BP 145/83; PULSE 86; RESP 21; TEMP 36.7; O2SAT 96
== END 2023-12-22 08:43 | disposition home or self-care (01) ==
PROVIDERS: Emergency Provider Nurse Practitioner; PCP Family Medicine
DX: Z02.89 Encounter for other administrative examinations (principal)
CPT/HCPCS: 99211; 99212; G0463

== ENCOUNTER 2024-01-02 11:24 | Outpatient (CLI) | payer BC, SELFPAY ==
[2024-01-02 12:18] LABS: Blood Urea Nitrogen 22 mg/dl (9-20); Estimated Glomerular Filt Rate 67 ml/min (>60); GFR (African American) 82 ML/MIN (>60)
[2024-01-02 12:49] LABS: Prostate Specific Ag Screen 0.3 ng/ml (0.0-4.0); Prostate Specific Ag, Diagnost 0.325 ng/ml (0.0-4.0)
== END 2024-01-02 23:59 ==
LOC: LAB 11:24
PROVIDERS: PCP Family Medicine; Visit Provider Urology
DX: R33.9 Retention of urine, unspecified (principal); N52.9 Male erectile dysfunction, unspecified; Z79.899 Other long term (current) drug therapy
CPT/HCPCS: 36415; 82565; 84153; 84520; G0103

== ENCOUNTER 2024-02-16 11:29 | Outpatient (CLI) | payer BC, SELFPAY ==
[2024-02-16 12:07] LABS: Basophils # 0.1 K/mm3 (0-0.2); Basophils % 1.4 % (0.1-2.0); Eosinophils # 0.2 K/mm3 (0.0-0.4); Eosinophils % 1.7 % (0.1-12.0); Hematocrit 46.6 % (42.0-52.0); Hemoglobin 15.7 g/dL (14.1-18.0); Lymphocytes # 3.2 K/mm3 (0.7-4.5); Mean Corpuscular HGB Conc 33.7 g/dL (31.8-35.4); Mean Corpuscular Hemoglobin 31.8 pg (27.0-31.2); Mean Corpuscular Volume 94.2 fl (80-94); Mean Platelet Volume 7.9 fl (7.4-10.4); Monocytes # 0.6 K/mm3 (0.1-1.0); Neutrophils # 4.8 K/mm3 (1.8-7.8); Neutrophils % 53.9 % (37.0-80.0); Platelet Count 193 K/mm3 (142-424); Red Blood Count 4.94 M/mm3 (4.60-6.20); Red Cell Distribution Width 13.6 % (11.5-17.5); White Blood Count 8.9 K/mm3 (4.8-10.8)
[2024-02-16 12:29] LABS: Iron 112 ug/dL (49-181)
[2024-02-16 12:38] LABS: Total Iron Binding Capacity 257 ug/dL (261-462)
[2024-02-16 12:46] LABS: C-Reactive Protein 0.7 mg/L (0-4)
[2024-02-16 13:05] LABS: Ferritin 666 ng/ml (17.9-464)
[2024-02-18 17:05] LABS: G6PD, Quantitative 277 (127-427); RBC, G6PD 5.03 x10E6/uL (4.14-5.80)
== END 2024-02-16 23:59 | disposition home or self-care (01) ==
LOC: LAB 11:30
PROVIDERS: PCP Family Medicine; Visit Provider Nurse Practitioner
DX: R79.89 Other specified abnormal findings of blood chemistry (principal)
CPT/HCPCS: 36415; 82728; 82955; 83540; 83550; 85025; 86140

== ENCOUNTER 2024-05-02 10:54 | Day surgery (SDC) | payer BC, SELFPAY ==
[2024-04-30 13:24] VITALS: BMI 35.5
[2024-05-02] VITALS (7 sets, daily range): BP systolic 94–169; BP diastolic 63–103; PULSE 59–87; RESP 12–18; TEMP 36.1–36.2; O2SAT 92–97; BMI 32.3
[2024-05-02 11:44] LABS: POC Glucose,Bedside 91 (70-110)
--- NOTE | 2024-05-02 11:56 | EXP.ANES.CKL ---
[facility] Disclaimer: The information contained in this section may have been updated after the patient was seen, as this information can be updated by other users. Medical History GERD (gastroesophageal reflux disease) Diabetes Surgical History History of cholecystectomy History of cardiac cath Family History Other No significant family history Social History Smoking Status: Current every day smoker tobacco type: smokeless tobacco second hand exposure: No alcohol intake: never substance use type: denies use current occupational status: employed Travel in the last 8 weeks: None household members: spouse and family housing: house current occupation: [employer] current occupational exposures/hazards: No caffeine: No [facility] Anesthesia Checklist Patient Identification Patient Identification: Arm Band and Verbal (Name & ) Structural Data Admitted From: Home Planned Operative Procedure/s: EGD Consent for Planned Operative Procedure(s) Verified: Yes NPO Status Verified Time NPO: 00:00 Additional verifications Anesthesia Reactions: No Airway Assessment Mallampati Score:: Class III C-Spine Mobility Assessed: Yes TMJ Mobility Assessed: Yes Dentition: Poor Dentition Neurological Assessment Level of Consciousness: Awake Hx Seizures: No Numbness or tingling in extremities: No Anesthesia Plan Anesthesia Risk discussed: Yes Anesthesia Plan: Verified ASA Class: II Anesthesia Type: MAC
--- NOTE | 2024-05-02 12:33 | HMH.SCOPE ---
Procedure: Date: 05/02/24 Patient Date of :: 1960 Procedure Performed:: Screening colonoscopy Indications:: Colon cancer screening Performing Provider:: Lew Farah MD Referring Provider:: Joaquina Farah APRN Sedation:: Propofol Procedure:: After placing the patient in the left lateral decubitus position, the colonoscopy was gently inserted into the rectum and under direct visualization advanced to the cecum which was identified by transillumination in the right lower quadrant, identification of the ileocecal valve, appendiceal orifice, and cecal strap. Color, texture, mucosa, and anatomy of the colon were carefully examined with the scope. Findings:: Anal canal: normal Rectum: normal, residual fecal material noted Sigmoid colon: normal without polyps or inflammatory changes, residual fecal material noted Descending colon: normal without polyps or inflammatory changes Splenic flexure: normal Transverse colon: normal without polyps or inflammatory changes Hepatic flexure: normal Ascending colon: normal without polyps or inflammatory changes Cecum: normal Terminal ileum: not visualized Impression: Normal colonoscopy Recommendations:: Follow up examination in about TEN years or so, sooner if clinically indicated. Complications:: None Estimated blood obtained (mL): 0 Colonoscopy Component Colonoscopy Component Was a colonoscopy performed during today's procedure?: Yes Recommended follow up colonoscopy of at least 10 years?: Yes
== END 2024-05-02 13:03 | disposition home or self-care (01) ==
LOC: OUTP 10:55
PROVIDERS: PCP Family Medicine; Visit Provider Internal Medicine Gastroenterology
PROC: (CPT 45378; principal; 2024-05-02 12:00)
DX: Z12.11 Encounter for screening for malignant neoplasm of colon (principal)
CPT/HCPCS: 45378; 82962

== ENCOUNTER 2024-05-17 13:19 | Outpatient (CLI) | payer BC, SELFPAY ==
[2024-05-17 14:57] LABS: Basophils # 0.1 K/mm3 (0-0.2); Eosinophils # 0.2 K/mm3 (0.0-0.4); Hematocrit 46.1 % (42.0-52.0); Hemoglobin 16.1 g/dL (14.1-18.0); Lymphocytes # 2.8 K/mm3 (0.7-4.5); Lymphocytes % 34.7 % (10-50); Mean Corpuscular Hemoglobin 32.5 pg (27.0-31.2); Mean Corpuscular Volume 92.9 fl (80-94); Mean Platelet Volume 8.4 fl (7.4-10.4); Monocytes # 0.6 K/mm3 (0.1-1.0); Neutrophils # 4.3 K/mm3 (1.8-7.8); Neutrophils % 54.4 % (37.0-80.0); Platelet Count 195 K/mm3 (142-424); Red Blood Count 4.96 M/mm3 (4.60-6.20); Red Cell Distribution Width 13.2 % (11.5-17.5)
[2024-05-17 15:13] LABS: Alanine Aminotransferase 17 U/L (12-78); Albumin Level 4.1 g/dl (3.5-5.0); Albumin/Globulin Ratio 1.3 (1.1-1.8); Alkaline Phosphatase 113 U/L (38-126); Anion Gap 12.2 mEq/L (5-15); Aspartate Amino Transferase 30 U/L (17-59); Bilirubin,Total 0.6 mg/dl (0.2-1.3); Blood Urea Nitrogen 17 mg/dl (9-20); Calcium 9.2 mg/dl (8.4-10.2); Carbon Dioxide 27 mmol/L (22.0-30.0); Chloride 104 mmol/L (98-107); Estimated Glomerular Filt Rate 75 ml/min (>60); GFR (African American) 91 ML/MIN (>60); Globulin 3.1 g/dL (1.3-3.2); Glucose 107 mg/dl (74-100); Potassium 4.2 mmoL/L (3.5-5.1); Sodium 139 mmol/L (136-145); Total Protein,Serum 7.2 g/dl (6.3-8.2)
[2024-05-17 15:18] LABS: C-Reactive Protein 0.7 mg/L (0-4)
[2024-05-17 18:07] LABS: Ferritin 567 ng/ml (17.9-464)
== END 2024-05-17 23:59 | disposition home or self-care (01) ==
LOC: LAB 13:20
PROVIDERS: PCP Family Medicine; Visit Provider Nurse Practitioner
DX: R79.89 Other specified abnormal findings of blood chemistry (principal); R79.82 Elevated C-reactive protein (CRP)
CPT/HCPCS: 36415; 80053; 82728; 85025; 86140

== ENCOUNTER 2024-07-06 23:27 | Emergency (ER) | payer BC, SELFPAY ==
--- NOTE | 2024-07-06 23:28 | ECG_ITS ---
APPROVED REPORT Exam: Resting ECG HR:77 bpm ECG Measurements Heart Rate 77 AXES IN 180 P 50 QRSd 106 QRS 64 QT 342 T 60 QTc 374 Conclusion SINUS RHYTHM NONSPECIFIC ST & T-WAVE ABNORMALITY BORDERLINE ECG No STEMI Electronically signed by : MANDY MENDOZA, 07/07/2024 06:45:28
[2024-07-06 23:31] VITALS: BP 238/116; PULSE 75; RESP 15; TEMP 36.4; O2SAT 98; BMI 36.5
[2024-07-06 23:40] VITALS: PULSE 79
[2024-07-06 23:45] VITALS: BP 184/113; PULSE 77; RESP 15; O2SAT 97
[2024-07-06] MEDS: ASPIRIN 81MG CHEWABLE TABLET 324 MG PO (23:59)
[2024-07-07] VITALS (7 sets, daily range): BP systolic 132–154; BP diastolic 79–89; PULSE 65–77; RESP 12–19; TEMP 36.8; O2SAT 95–98
--- NOTE | 2024-07-07 | XR_ITS ---
PROCEDURE INFORMATION: Exam: XR Chest Exam date and time: 07/07/2024 12:10 AM Age: 63 years old Clinical indication: Pain; Chest pressure; Additional info: Chest pain TECHNIQUE: Imaging protocol: Radiologic exam of the chest. Views: 2 views. COMPARISON: CR XR CHEST PORTABLE 11/04/2020 1:51 PM FINDINGS: Lungs: Clear, symmetrically inflated lungs. Pleural spaces: No pleural effusion. No pneumothorax. Heart/Mediastinum: Cardiac silhouette is normal in size for technique. Bones/joints: Age appropriate. IMPRESSION: No acute cardiopulmonary abnormality.
[2024-07-07 00:07] LABS: Basophils # 0.1 K/mm3 (0-0.2); Basophils % 1.4 % (0.1-2.0); Eosinophils # 0.3 K/mm3 (0.0-0.4); Hematocrit 49.2 % (42.0-52.0); Hemoglobin 16.3 g/dL (14.1-18.0); Lymphocytes # 4.1 K/mm3 (0.7-4.5); Lymphocytes % 48.8 % (10-50); Mean Corpuscular HGB Conc 33.1 g/dL (31.8-35.4); Mean Corpuscular Hemoglobin 31.3 pg (27.0-31.2); Mean Corpuscular Volume 94.6 fl (80-94); Monocytes # 0.6 K/mm3 (0.1-1.0); Neutrophils # 3.3 K/mm3 (1.8-7.8); Neutrophils % 39.8 % (37.0-80.0); Platelet Count 197 K/mm3 (142-424); Red Blood Count 5.21 M/mm3 (4.60-6.20); Red Cell Distribution Width 13.4 % (11.5-17.5); White Blood Count 8.3 K/mm3 (4.8-10.8)
[2024-07-07 00:12] LABS: INR 0.92 (0.9-1.1); Prothrombin Time 10.4 seconds (10.1-12.5)
--- NOTE | 2024-07-07 00:15 | ED_ITS ---
Discharge Plan Disposition Patient Disposition: Home, Self-Care Condition: Good Prescriptions Prescriptions: No Action Ozempic 2 mg/dose (8 mg/3 mL) pen injector 2 mg SQ WEEKLY lisinopril [Zestril] 40 mg tablet 40 mg PO DAILY atorvastatin 10 mg tablet 10 mg PO DAILY tamsulosin [Flomax] 0.4 mg capsule 0.4 mg PO DAILY 90 Days Qty: 90 1RF aspirin 81 MG tablet,delayed release (DR/EC) 81 mg PO DAILY benzonatate 100 mg capsule 100 mg PO TID PRN (Reason: cough) Qty: 60 0RF Referrals Follow up/Referrals: Brooks Kennedy MD [Staff Physician] - See instructions (chest pain in ER with strong family hx, negative ER workup) Luis Ward MD [Primary Care Provider] - See instructions Activity Restrictions/Add. Instructions Additional Instructions/Restrictions: You were evaluated in the ER and are appropriate for discharge at this time. Call the cardiology office and make an appointment for outpatient follow-up first thing Tuesday morning. Also follow-up with your primary care doctor. Return to the ER with any new, worsening, or otherwise concerning symptoms. Clinical Impressions Clinical Impression: Chest pain Print Language Print Language: Maltese Discharge ED Provider: Diandra Santoyo General Chief Complaint: Chest Pain Stated Complaint: chest pain Time Seen by Provider: 07/06/24 23:35 Mode of Arrival: Family Vehicle Source of Information: Patient Limitations: No Limitations Description of Symptoms (Recalled from ER Triage Doc. by RN): 63 yo male presents with midsternal/midepigastric pain that began about 45 mins ago. States he wasn't exerting himself in any other way, denies dyspnea, no recent edema, minimal nausea. No other complaints offered. H/o: HTN, DM, takes ozempic daily, GERD History of Present Illness HPI narrative: 63-year-old male presents to the ER with midsternal/epigastric pain beginning approximately 45 minutes prior to arrival. Patient states this was sudden onset without any exertional stimulus. He denies any shortness of breath. He has not had any significant peripheral swelling in the legs. He did have slight associated nausea but his symptoms have improved. Patient states he does not have any symptoms at this time and is feeling back to baseline. He does have family history of heart attack. Patient reports that the pain did not radiate to his arm or jaw. Patient does report a history of hypertension, diabetes on Ozempic, reflux. He reports he took an antacid prior to arrival thinking that may be contributing to his pain. Related Data Home Medications ?Medication ?Instructions ?Recorded ?Confirmed aspirin 81 mg tablet,delayed 81 mg PO DAILY Supplement 12/08/20 05/17/24 release atorvastatin 10 mg tablet 10 mg PO DAILY 02/16/24 05/17/24 lisinopril 40 mg tablet (Zestril) 40 mg PO DAILY 02/16/24 05/17/24 semaglutide 2 mg/dose (8 mg/3 mL) 2 mg SQ WEEKLY 02/16/24 05/17/24 subcutaneous pen injector (Ozempic) Previous Rx's ?Medication ?Instructions ?Recorded benzonatate 100 mg capsule 100 mg PO TID PRN cough #60 caps 03/19/23 tamsulosin 0.4 mg capsule (Flomax) 0.4 mg PO DAILY 90 days #90 caps 04/09/24 Allergies Allergy/AdvReac Type Severity Reaction Status Date / Time No Known Allergies Allergy Verified 05/17/24 12:58 [facility] Disclaimer: The information contained in this section may have been updated after the patient was seen, as this information can be updated by other users. Medical History GERD (gastroesophageal reflux disease) Diabetes Surgical History History of cholecystectomy History of cardiac cath Family History Other No significant family history Social History Smoking Status: Unknown if ever smoked second hand exposure: No alcohol intake: never substance use type: denies use current occupational status: employed Travel in the last 8 weeks: None household members: spouse and family housing: house current occupation: [employer] current occupational exposures/hazards: No caffeine: No ROS Obtained: Yes All systems reviewed & no additional complaints except as documented Positive ROS per HPI Physical Exam General General appearance: alert and in no apparent distress Head Head exam: atraumatic and normocephalic Eye Eye exam: Present PERRL and EOMI ENT ENT exam: Present mucous membranes moist Neck Neck exam: Present normal inspection and full ROM Chest Chest inspection: Present symmetric chest wall rise; Absent tenderness Respiratory Respiratory exam: Present normal lung sounds bilaterally; Absent respiratory distress, wheezes or stridor Cardiovascular Cardiovascular exam: Present regular rate and normal rhythm Abdominal Exam Abdominal exam: Present soft; Absent distention or tenderness Extremities Exam Extremities exam: Present full ROM; Absent edema Neurological Exam Neurological exam: Present alert and oriented X3; Absent motor sensory deficit Psychiatric Psychiatric exam: Present normal affect and normal mood Skin Skin exam: Present warm and dry HEART Score HEART Score HEART Score assessment performed?: Yes History (anamnesis): Slightly suspicious ECG: Non-specific disturbance Age: 45-65 years Risk factors: 3 or more risk factors Troponin: </= normal limit HEART Score: 4 Critical Care Critical Care Time Critical Care Time: No Medical Decision Making Medical Records Medical records reviewed: Yes I reviewed the patient's medical records. MR Comment: Patient had colonoscopy performed in April 2024. Anticipated 10-year follow-up. Walt Inquiry Pt receiving controlled substance: No Vital Signs Vital Signs: 07/06/24 23:31 07/06/24 23:40 07/06/24 23:45 Temperature 97.6 F Temperature Source Oral Pulse Rate 79 77 Pulse Rate [Right Brachial] 75 Respiratory Rate 15 15 Blood Pressure 184/113 H Blood Pressure [Right Arm] 238/116 H Blood Pressure Mean Blood Pressure Mean [Right Arm] 156 Blood Pressure Source Blood Pressure Source [Right Arm] Automatic Cuff Blood Pressure Position 02 Sat by Pulse Oximetry 98 97 Oxygen Delivery Method Room Air Room Air 07/07/24 00:01 07/07/24 00:54 07/07/24 01:00 Temperature Temperature Source Pulse Rate 76 77 73 Pulse Rate [Right Brachial] Respiratory Rate 19 14 12 Blood Pressure 154/81 H 137/85 132/81 Blood Pressure [Right Arm] Blood Pressure Mean 116 107 98 Blood Pressure Mean [Right Arm] Blood Pressure Source Blood Pressure Source [Right Arm] Blood Pressure Position 02 Sat by Pulse Oximetry 96 95 98 Oxygen Delivery Method 07/07/24 01:30 07/07/24 02:00 07/07/24 02:30 Temperature Temperature Source Pulse Rate 71 67 65 Pulse Rate [Right Brachial] Respiratory Rate 16 15 15 Blood Pressure 147/82 H 138/89 143/79 H Blood Pressure [Right Arm] Blood Pressure Mean 92 105 95 Blood Pressure Mean [Right Arm] Blood Pressure Source Blood Pressure Source [Right Arm] Blood Pressure Position 02 Sat by Pulse Oximetry 97 97 97 Oxygen Delivery Method 07/07/24 03:05 Temperature 98.2 F Temperature Source Oral Pulse Rate 65 Pulse Rate [Right Brachial] Respiratory Rate 16 Blood Pressure 138/86 Blood Pressure [Right Arm] Blood Pressure Mean Blood Pressure Mean [Right Arm] Blood Pressure Source Automatic Cuff Blood Pressure Source [Right Arm] Blood Pressure Position Supine 02 Sat by Pulse Oximetry Oxygen Delivery Method Room Air Lab Data Labs: Lab Results 07/06/24 23:32: WBC 8.3, RBC 5.21, Hgb 16.3, Hct 49.2, MCV 94.6 H, MCH 31.3 H, MCHC 33.1, RDW 13.4, Plt Count 197, MPV 8.0, Neut % (Auto) 39.8, Lymph % (Auto) 48.8, [place] % (Auto) 7.0, Eos % (Auto) 3.0, Baso % (Auto) 1.4, Neut # (Auto) 3.3, Lymph # (Auto) 4.1, [place] # (Auto) 0.6, Eos # (Auto) 0.3, Baso # (Auto) 0.1, PT 10.4, INR 0.92, Sodium 139, Potassium 3.7, Chloride 104, Carbon Dioxide 30, Anion Gap 8.7, BUN 15, Creatinine 1.00, Estimated Creat Clear 115, Estimated GFR 75, Est GFR ( Amer) 91, Glucose 101 H, Calcium 8.9, Total Bilirubin 1.0, AST 32, ALT 21, Alkaline Phosphatase 134 H, Troponin I < 0.01, Total Protein 7.6, Albumin 4.4, Globulin 3.2, Albumin/Globulin Ratio 1.4 07/07/24 02:30: Troponin I < 0.01 07/06/24 23:32 07/06/24 23:32 Response Orders (Tests/Meds): ED MEDICATIONS Discontinued Medications Generic Name Dose Route Start Last Admin Trade Name Freq PRN Reason Stop Dose Admin Aspirin 324 mg 07/06/24 23:46 07/06/24 23:59 Aspirin 81mg Chewable Tablet PO 07/06/24 23:47 324 mg ONCE ONE Administration ORDERS Category Date Time Status XR chest 2V Routine Exams 07/07/24 Completed Complete Blood Count Auto Diff Stat Lab 07/06/24 23:32 Completed Comprehensive Metabolic Panel Stat Lab 07/06/24 23:32 Completed PT INR [Prothrombin Time INR] Stat Lab 07/06/24 23:32 Completed Troponin I Q3H Lab 07/06/24 23:32 Completed Troponin I Q3H Lab 07/07/24 02:30 Completed MDM Narrative Medical Decision Narrative: In summary, this 63-year-old male presents to the emergency department today with chest pain. On initial evaluation patient is hemodynamically stable, afebrile, cardiopulmonary exam reassuring, asymptomatic on arrival, remainder of exam benign. Differential diagnosis includes but is not limited to ACS, electrolyte abnormality, arrhythmia, I considered esophageal spasm I did consider PE however have extremely low suspicion for this since patient is not tachycardic, hypotensive, hypoxic, and symptoms spontaneously resolved. Based on these concerns, I ordered cardiac workup, serum labs. ECG personally interpreted demonstrates normal sinus rhythm, rate 77, normal axis, normal IN and QTc, no STEMI. Patient received chewable aspirin for treatment. Labs personally reviewed demonstrate no leukocytosis or anemia, normal platelets, PT/INR normal, CMP nonactionable, initial troponin undetectably low at less than 0.01. Patient continues to be asymptomatic but I do believe serial troponins are indicated. Patient was placed into ED observation at 0045 for serial troponins to rule out evolving LA and to preclude unnecessary admission XR personally interpreted demonstrates no acute thoracic abnormality, see radiology read from interpretation. Patient was frequently reassessed during his time in the ER. He has hypertension that was present on arrival improved spontaneously. He remained asymptomatic. Repeat troponin also undetectably low at less than 0.01. At this time I believe patient is appropriate for discharge and outpatient follow-up. He was referred to cardiology. Patient was given instructions on symptomatic management, follow up instructions, and return precautions for the emergency department. Patient indicated understanding and was discharged in stable condition. Total time in ED observation 2 hours 20 minutes
--- NOTE | 2024-07-07 00:16 | PC.NURSE ---
lab called and requested 2nd troponin on pt, reported to charge nurse. gave call back and informed them that it wasnt time for a second trop.
[2024-07-07 00:24] LABS: Albumin Level 4.4 g/dl (3.5-5.0); Chloride 104 mmol/L (98-107); Potassium 3.7 mmoL/L (3.5-5.1); Sodium 139 mmol/L (136-145)
[2024-07-07 00:26] LABS: Alanine Aminotransferase 21 U/L (12-78); Alkaline Phosphatase 134 U/L (38-126); Aspartate Amino Transferase 32 U/L (17-59); Blood Urea Nitrogen 15 mg/dl (9-20); Calcium 8.9 mg/dl (8.4-10.2); Carbon Dioxide 30 mmol/L (22.0-30.0); Creatinine Clearance Estimated 115 mL/min (50-200); Estimated Glomerular Filt Rate 75 ml/min (>60); GFR (African American) 91 ML/MIN (>60); Glucose 101 mg/dl (74-100); Total Protein,Serum 7.6 g/dl (6.3-8.2)
[2024-07-07 00:27] LABS: Albumin/Globulin Ratio 1.4 (1.1-1.8); Anion Gap 8.7 mEq/L (5-15); Globulin 3.2 g/dL (1.3-3.2)
[2024-07-07 00:33] LABS: Troponin I < 0.01 ng/ml (0.00-0.034)
--- NOTE | 2024-07-07 00:35 | PC.NURSE ---
Pt resting on bed, denies CP, SOA or N/V, urinal provided
--- NOTE | 2024-07-07 02:29 | PC.NURSE ---
Pt resting on stretcher, denies any CP or any other needs, providered with warm blankets for comfort, family at bedside
[2024-07-07 03:03] LABS: Troponin I < 0.01 ng/ml (0.00-0.034)
== END 2024-07-07 03:11 | disposition home or self-care (01) ==
PROVIDERS: Emergency Provider Emergency Medicine; PCP Family Medicine
DX: R07.9 Chest pain, unspecified (principal); R10.13 Epigastric pain; E11.9 Type 2 diabetes mellitus without complications; I10 Essential (primary) hypertension; K21.9 Gastro-esophageal reflux disease without esophagitis
CPT/HCPCS: 71046; 80053; 84484; 85025; 85610; 93005; 99285

== ENCOUNTER 2024-07-25 08:00 | Emergency (ER) | payer BC, SELFPAY ==
[2024-07-25 08:12] VITALS: BP 159/101; PULSE 86; RESP 20; TEMP 36.6; O2SAT 97; BMI 35.2
[2024-07-25 08:24] LABS: Apearance,Urine Clear (Clear); Color,Urine Yellow (Yellow); PH,Urine 5.5 (5.0-8.5)
[2024-07-25 08:25] LABS: Bilirubin,Urine Negative (Negative); Blood, Urine Negative (Negative); Glucose,Urine (UA) Negative (Negative); Ketones,Urine Negative (Negative); Protein,Urine Negative (Negative); UTC Leukocyte Esterase,Urine Negative (Negative); UTC Nitrate,Urine Negative (Negative); Urobilinogen,Urine 0.2 EU/dl (0.2)
[2024-07-25] MEDS: DEXAMETHASONE 4MG/ML 1ML VIAL 8 MG IM (08:35)
[2024-07-25 08:38] VITALS: BP 159/101; PULSE 86; RESP 20; TEMP 36.6
== END 2024-07-25 08:46 | disposition home or self-care (01) ==
PROVIDERS: Emergency Provider Nurse Practitioner Family; PCP Family Medicine
DX: M54.50 Low back pain, unspecified (principal); J01.90 Acute sinusitis, unspecified
CPT/HCPCS: 81003; 96372; 99212; 99214; G0463; J1100

== ENCOUNTER 2024-11-02 08:03 | Emergency (ER) | payer BC, SELFPAY ==
[2024-11-02 08:15] VITALS: BP 123/89; PULSE 70; RESP 19; TEMP 36.7; O2SAT 98; BMI 36.8
--- NOTE | 2024-11-02 08:19 | ED_ITS ---
Discharge Plan Disposition Patient Disposition: Home, Self-Care Condition: Good Prescriptions Prescriptions: New fluticasone propionate [Flonase Allergy Relief] 50 mcg/actuation spray,suspension 1 spray intranasal DAILY Qty: 16 1RF Rx Instructions: administer into each nostril mupirocin 2 % ointment 1 applic topical TID Qty: 22 0RF ofloxacin 0.3 % drops See Rx Instructions .ROUTE .COMPLEX Qty: 10 0RF Rx Instructions: put 1-2 drps into affected eye(s) every 2-4 h x 2 days, then 1-2 drps 4 times/day days 3-7 No Action lisinopril 40 mg tablet 40 mg PO DAILY Ozempic 2 mg/dose (8 mg/3 mL) pen injector 2 mg SQ WEEKLY Referrals Follow up/Referrals: Luis Ward MD [Primary Care Provider] - See instructions Activity Restrictions/Add. Instructions Additional Instructions/Restrictions: Take medication as prescribed. If facial lesion does not show signs of healing within the next two weeks, follow up with PCP/dermatology. If symptoms persist or worsen return to clinic/PCP. Clinical Impressions Clinical Impression: Acute conjunctivitis of left eye, Eustachian tube dysfunction, Skin lesion of face Stand Alone Forms Stand Alone Forms: Work/School Release Instructions Patient Instructions: DI for Conjunctivitis, DI for Eustachian Tube Dysfunction-Adult Print Language Print Language: Algerian Discharge ED Provider: Etta Soto [facility] General Stated complaint: poss eye infection, sinus drainage Time Seen by Provider: 11/02/24 08:14 History of Present Illness Provider Complaint: Pt reports that he has had right ear pain, left eye pain with redness, and a sore just under his right eye that has been present for the last 6 months. He states that the site itches and he rubs it often. Pt states that he has been treating with antibiotic ointment. Related Data Home Medications ?Medication ?Instructions ?Recorded ?Confirmed lisinopril 40 mg tablet 40 mg PO DAILY 11/02/24 11/02/24 semaglutide 2 mg/dose (8 mg/3 mL) 2 mg SQ WEEKLY 11/02/24 11/02/24 subcutaneous pen injector (Ozempic) Previous Rx's ?Medication ?Instructions ?Recorded fluticasone propionate 50 1 spray intranasal DAILY #16 grams 11/02/24 mcg/actuation nasal spray,suspension (Flonase Allergy Relief) mupirocin 2 % topical ointment 1 applic topical TID #22 grams 11/02/24 ofloxacin 0.3 % eye drops See Rx Instructions ophthalmic 11/02/24 (eye) .COMPLEX #10 mL Allergies Allergy/AdvReac Type Severity Reaction Status Date / Time No Known Allergies Allergy Verified 05/17/24 12:58 [facility] Disclaimer: The information contained in this section may have been updated after the patient was seen, as this information can be updated by other users. Medical History GERD (gastroesophageal reflux disease) Diabetes Surgical History History of cholecystectomy History of cardiac cath Family History Other No significant family history Social History Smoking Status: Unknown if ever smoked second hand exposure: No alcohol intake: never substance use type: denies use current occupational status: employed Travel in the last 8 weeks: None household members: spouse and family housing: house current occupation: [employer] current occupational exposures/hazards: No caffeine: No Have you lived/traveled outside US in past 30 days?: No Contact w/someone who lives/traveled outside US past 30 days?: No Exposure to someone with infectious disease in past 14 days?: No Do you have a fever (greater than 100.4 F or 38 C)?: No Have you tested positive for COVID-19: No Exposed to someone with COVID-19 in past 14 days?: No Do you have a sore throat?: No Do you have a cough?: No Do you have any weakness?: No Do you have any diarrhea?: No Are you experiencing any unusual bleeding?: No Do you have any muscle aches/pain?: No Do you have any abdominal pain?: No Are you experiencing loss of taste or smell?: No ROS Obtained: Yes All systems reviewed & no additional complaints except as documented Constitutional Constitutional: Reports system reviewed and no additional complaints, except as documented Eyes Eyes: Reports as per HPI, Reports eye discharge, Reports irritation, Reports itchy eyes and Reports eye pain ENT Ears, Nose, Mouth, and Throat: Reports system reviewed and no additional complaints, except as documented, Reports otalgia and Reports nasal discharge Cardiovascular Cardiovascular: Reports system reviewed and no additional complaints, except as documented Respiratory Respiratory: Reports system reviewed and no additional complaints, except as documented Gastrointestinal Gastrointestingal: Reports system reviewed and no additional complaints, except as documented Genitourinary Male Genitourinary: Reports system reviewed and no additional complaints, except as documented Musculoskeletal Musculoskeletal: Reports system reviewed and no additional complaints, except as documented Integumentary/Breasts Skin/Breast: Reports system reviewed and no additional complaints, except as documented Neurologic Neurologic: Reports system reviewed and no additional complaints, except as documented Endocrine Endocrine: Reports system reviewed and no additional complaints, except as documented Hematologic/Lymphatic Henatologic/Lymphatic: Reports system reviewed and no additional complaints, except as documented Allergic/Immunologic Allergic/Immunologic: Reports system reviewed and no additional complaints, except as documented and Reports itchy eyes Physical Exam General General appearance: alert and in no apparent distress Head Head exam: atraumatic and normocephalic Eye Eye exam: Present EOMI, conjunctival redness and discharge Expanded ENT Exam External ear exam: Present normal external inspection TM/Canal exam: Bilateral TM: effusion (clear bubbles present) Nasal speculum exam: Bilateral: normal Mouth exam: Present normal external inspection Teeth exam: Present normal inspection Throat exam: Present normal inspection Neck Neck exam: Present normal inspection Chest Chest inspection: Present normal inspection and symmetric chest wall rise Respiratory Respiratory exam: Present normal lung sounds bilaterally Cardiovascular Cardiovascular exam: Present regular rate and normal rhythm Abdominal Exam Abdominal exam: Present soft and normal bowel sounds Extremities Exam Extremities exam: Present normal inspection Back Exam Back exam: Present normal inspection Neurological Exam Neurological exam: Present alert and oriented X3 Psychiatric Psychiatric exam: Present normal affect and normal mood Skin Skin exam: Present warm, dry and intact Lymphatic Lymphatic Findings: no adenopathy Medical Decision Making Medical Records Screening: Per USPSTF and CDC recommendations, given the prevalence of disease in our region, it is our hospital?s policy to screen for HIV and viral Hepatitis for all patients aged 18 and over and those with ongoing risk factors. Walt Inquiry Pt receiving controlled substance: No Walt was queried for this patient: No
[2024-11-02 08:35] VITALS: BP 123/89; PULSE 70; RESP 19; TEMP 36.7; O2SAT 98
== END 2024-11-02 08:37 | disposition home or self-care (01) ==
PROVIDERS: Emergency Provider Nurse Practitioner Family; PCP Family Medicine
DX: H10.32 Unspecified acute conjunctivitis, left eye (principal); H69.80 Other specified disorders of Eustachian tube, unspecified ear
CPT/HCPCS: 99213; G0381

== ENCOUNTER 2025-06-21 10:03 | Outpatient (CLI) | payer BC, SELFPAY ==
--- OUTSIDE RECORDS SUMMARY | 2025-06-21 09:00 | XMS_ITS | Encounter Summary ---
Author Organization [facility] Address [address] [place] [address] Care Team Providers Care T[employer] Supervisor Name Role Phone Luis Ward MD Primary Care Provider + Reason for Referral * Physical Therapy (Routine) - Pending Review Specialty Diagnoses / Procedures Referred By Benita amador Referred To Contact Physical Therapy Diagnoses Rotator cuff strain, right, initial encounter Strain of right biceps tendon Procedures FL OFFICE/OUTPATIENT NEW MODERATE MDM 45 MINUTES Luis Ward MD [address] [place] [address] [place] [address] Phone: tel: fax: [facility] - OUTPT PHYSICAL THERAPY [address] [place] [address] Phone: tel: fax: Referral ID Status Reason Start Date Expiration Date Visits Requested Visits Authorized Pending Review Specialty Services Required 06/21/2025 09/20/2026 1 1 * Diagnostic Imaging (Routine) - Authorized Specialty Diagnoses / Procedures Referred By Benita amador Referred To Contact Diagnoses Acute pain of right shoulder Procedures XR Shoulder 2+ View Right Luis Ward MD [address] [facility] [place] [address] Phone: tel: fax: Referral ID Status Reason Start Date Expiration Date V isits Requested Visits Authorized Authorized 06/21/2025 09/20/2026 1 1 Reason for Visit * Reason Comments Right shoulder pain For the past month Encounter Details Date Type Department Care Team (Late st Contact Info) Description 06/21/2025 9:00 AM EDT Office Visit [facility] [address] [facility] [place] [id number] Luis Ward MD [address] [place] [address] Rotator cuff strain, right, initial encounter (Primary Dx); Strain of right biceps tendon; Acute pain of right shoulder Social History Tobacco Use Types Packs/Day Years Used Date Smoking Tobacco: Never Smokeless Tobacco: Current Snuff Tobacco Cessation:Ready to Q uit: Not Asked; Counseling Given: Not Answered Alcohol Use Standard Drinks/Week Comments Not Currently 0 (1 standard drink = 0.6 oz pur e alcohol) Not in 21 years PHQ-2 Answer Date Recorded Retired PHQ-9: Brief Depression Severity Measure Score 1 09/20/2023 PHQ-2 Answer Date Recorded Patient Health Questionnaire-9 Score 4 06/19/2025 Sex and Gender Information Value Date Recorded Sex Assigned at Male 06/05/2025 5:12 AM EDT Legal Sex Male 12:29 PM EDT Gender Identity Not on file Sexual Orientation Not on file documented as of this encounter Last Filed Vital Signs Vital Sign Reading Time Taken Comments Blood Pressure 150/80 06/21/2025 8:58 AM EDT Pulse 82 06/21/2025 8:58 AM EDT Temperature 36.2 C (97.1 F) 06/21/2025 8:58 AM EDT Respiratory Rate 20 06/21/2025 8:58 AM EDT Oxygen Saturation 97% 06/21/2025 8:58 AM EDT Inhaled Oxygen Concentration - - Weight 101 kg (223 lb) 06/21/2025 8:58 AM EDT Height 167.6 cm (5' 6 ) 06/21/2025 8:58 AM EDT Body Mass Index 35.99 06/21/2025 8:58 AM EDT documented in this encounter Plan of Treatment Scheduled Orders Name Type Priority Associated Diagnoses Orde r Schedule XR Shoulder 2+ View Right Imaging Routine Acute pain of right shoulder Expected: 06/21/2025, Expires: 09/21/2026 documented as of this encounter Visit Diagnoses Diagnosis Rotator cuff strain, right, initial encounter- Primary Strain of right biceps tendon Acute pain of right shoulder documented in this encounter Additional Health Concerns Assessment Noted Time PHQ-2 Depression Total Score: 1 07/27/20 24 8:56 AM EDT documented as of this encounter Care Teams T[employer] Center Supervisor Relationship Specialty Start Date End Date Luis Ward MD [address] [place] [address] PCP - General Family Medicine 03/05/22 documented as of this encounter
--- NOTE | 2025-06-21 10:06 | XR_ITS ---
FINAL REPORT CLINICAL HISTORY: PAIN RT-SHOULDER FINDINGS: RIGHT SHOULDER Three views demonstrate no acute fracture or dislocation. The visualized joint spaces are normally aligned. Mild degenerative changes are seen of the acromioclavicular joint. The soft tissues are unremarkable. IMPRESSION: No acute process. Reviewed, Interpreted and Dictated by Gigi Alvarez MD Transcribed by Cynthia White Authenticated and [facility]
--- OUTSIDE RECORDS SUMMARY | 2025-06-21 10:06 | XMS_ITS | Encounter Summary ---
Author Organization [facility] Address [address] [place] [address] Care Team Providers Care Claims Vice President Name Role Phone Luis Ward MD Primary Care Provider + Encounter Details Date Type Department Care Team (Latest Contact Info) Description 06/21/2025 Travel Social History Tobacco Use Types Packs/Day Years Used Date Smoking Tobacco: Never Smokeless Tobacco: Current Snuff Alcohol Use Standard Drinks/Week Comments Not Currently [...] on file documented as of this encounter Plan of Treatment Not on file documented as of this encounter Visit Diagnoses Not on filedocumented in this encounter Additional Health Concerns Assessment Noted Time PHQ-2 Depression Total Score: 1 07/27/20 24 8:56 AM EDT documented as of this encounter Care Teams Claims Vice President Relationship Specialty Start Date End Date Luis Ward [place] [address] PCP - General Family Medicine 03/05/22 documented as of this encounter
--- OUTSIDE RECORDS SUMMARY | 2025-06-21 10:06 | XMS_ITS | Clinical Summary ---
[facility] Address [address] [place] [address] Care Team Providers Care Geriatric Social Work Professor Name Role Phone Luis Ward MD Primary Care Provider + Allergies Active Allergy Reactions Criticality Noted Date Comments Metformin Diarrhea Low 09/06/2023 Bloating Metformin Hcl Er Diarrhea 12/30/2023 Fecal incontinence Medications aspirin 81 MG EC tabletIndication s:Type 2 diabetes mellitus with hyperglycemia, with long-term current use of insulin Take 1 tablet by mouth Daily. Active tamsulosin (FLOMAX) 0.4 MG capsule 24 hr capsule Take 1 capsule by mouth Daily. 04/09/20 24 Active atorvastatin (LIPITOR) 10 MG tabletIndication s:Type 2 diabetes mellitus with diabetic mononeuropathy, with long-term current use of insulin Take 1 tablet by mouth Every Night. 30 tablet 5 04/04/20 25 Active lisinopril (PRINIVIL,ZESTRI L) 40 MG tabletIndication s:Essential hypertension Take 1 tablet by mouth Daily. 30 tablet 5 04/04/20 25 Active pioglitazone (Actos) 15 MG tabletIndication s:Type 2 diabetes mellitus with diabetic mononeuropathy, with long-term current use of insulin Take 1 tablet by mouth Daily. 30 tablet 5 04/04/20 25 Active Semaglutide, 2 MG/DOSE, (Ozempic, 2 MG/DOSE,) 8 MG/3ML solution pen-injectorIndi cations:Type 2 diabetes mellitus with diabetic mononeuropathy, with long-term current use of insulin Inject 2 mg under the skin into the appropriate area as directed 1 (One) Time Per Week. 3 mL 5 04/04/20 25 Active cyclobenzaprine (FLEXERIL) 5 MG tablet 07/25/20 24 025 Discontin ued(*Ther apy completed ) Active Problems Problem Noted Date Diagnosed Date Microalbuminuria 04/04/2025 Type 2 diabetes mellitus wit h diabetic mononeuropathy, with long-term current use of insulin 03/05/2022 Assessment & Plan (12/30/2023 8:36 AM EST): Diabetes is improving with treatment. Continue current treatment regimen. Diabetes will be reassessed in 3 months Patient will discontinue insulin. Continue Ozempic with increased dosage of 2 mg weekly. Continue pioglitazone. Stop metformin due to intolerance. Return in 3 months Assessment & Plan (09/30/2023 4:14 PM EST): Diabetes is improving with treatment. Continue current treatment regimen. Diabetes will be reassessed in 3 months. We have accomplished short term goal of getting A1c under 10. No additional changes at this time to allow patient to become better adjusted to his regimen. Reassess in 3 months Assessment & Plan (09/20/2023 10:25 AM EST): Diabetes is improving but not at goal . Reminded to bring in blood sugar diary at next visit. Medication changes per orders. Diabetes will be reassessed 10 days . Increase metformin to 1000 mg each morning Continue pioglitazone 15 mg daily Continue Ozempic 0.5 mg daily Continue insulin at current dosing Contact office for blood sugars less than 80 Yu 2 CGM sent to patient's pharmacy Assessment & Plan (03/05/2022 11:15 AM EDT): Diabetes is improving with treatment. Dietary recommendations for ADA diet. Medication changes per orders. Diabetes will be reassessed in 3 months. Essential hypertension 03/05/2022 Assessment & Plan (12/30/2023 8:35 AM EST): Hypertension is uncontrolled Medication changes per orders. Dietary sodium restriction. Weight loss. Blood pressure will be reassessedin 4 weeks. Assessment & Plan (09/20/2023 10:25 AM EST): Hypertension is improving with treatment. Continue current treatment regimen. Dietary sodium restriction. Weight loss. Regular aerobic exercise. Blood pressure will be reassessed at the next regular appointment. Assessment & Plan (03/05/2022 11:19 AM EDT): Hypertension is worsening. Medication changes per orders. Increase lisinopril to 10 mg Blood pressure will be reassessed in 3 months. Encounters Date Type Department Care Team Description 06/21/2025 9:00 AM EDT Office Visit [facility] [address] [place] [phone] Luis Ward MD Rotator cuff strain, right, initial encounter (Primary Dx); Strain of right biceps tendon; Acute pain of right shoulder 06/21/2025 Travel 04/04/2025 10:15 AM EDT Office Visit [facility] [address] [place] [phone] Luis Ward MD Type 2 diabetes mellitus with diabetic mononeuropathy, with long-term current use of insulin (Primary Dx); Annual physical exam; Type 2 diabetes mellitus with diabetic mononeuropathy, with long-term current use of insulin; Essential hypertension; Microalbuminuria 04/04/2025 Travel 03/27/2025 Telephone [facility] [address] [place] [phone] Luis Ward MD Prior Authorization (Ozempic ) from Last 3 Months Immunizations Immunization Administration Dates Next Due Tdap 07/19/2020 Family History Medical History Relation Name Comments Cancer Father Roque Blanc Heart disease Father Roque Blanc Heart disease Mother Rachel Blanc Relation Name Status Comments Father Roque Blanc Mother Rachel Blanc Social History Tobacco Use Types Packs/Day Years [...] on file Sexual Orientation Not on file Last Filed Vital Signs Vital Sign Reading [...] Mass Index 35.99 06/21/2025 8:58 AM EDT Plan of Treatment Health Maintenance Due Date Last Done Comments DIABETIC EYE EXAM 1969 DIABETIC FOOT EXAM 1969 Pneumococcal Vaccine 50+ (1 of 2 - PCV) 1978 COLOGUARD 2004 COLON CANCER SCREENING [address] COLONOGRAPHY 2004 FECAL OCCULT BLOOD TEST 2004 FIT Testing (1 year) 2004 ZOSTER VACCINE (1 of 2) 2009 Hepatitis B (1 of 3 - Risk 3-dose series) 2019 HEPATITIS C SCREENING 03/05/2022 COVID-19 Vaccine ( season) 2025 07/04/2021, 06/06/2021 Postponed from 07/01/2024 (Product Unavailable) INFLUENZA VACCINE 07/31/2025 HEMOGLOBIN A1C 10/04/2025 04/04/2025, 09/2 04/2024, 12/30/2023, Additional history exists ANNUAL PHYSICAL 04/04/2026 04/04/2025 URINE MICROALBUMIN-CREATININE RATIO (uACR) 04/04/2026 04/04/2025 TDAP/TD VACCINES (2 - Td or Tdap) 07/19/2030 07/19/2020 COLONOSCOPY 07/03/2034 07/03/2024, 05/02/2024 COLORECTAL CANCER SCREENING 07/03/2034 Procedures Procedure Name Priority Date/Time Associated Diagnosis Comments POCT GLYCOSYLATED HEMOGLOBIN (HGB A1C) Routine 04/04/2025 10:25 AM EDT Type 2 diabetes mellitus with diabetic mononeuropathy, with long-term current use of insulin POC ALBUMIN/CREATININE RATIO Routine 04/04/2025 10:06 AM EDT Type 2 diabetes mellitus with diabetic mononeuropathy, with long-term current use of insulin SCANNED - COLONOSCOPY 07/03/2024 from Last 3 Months or Most Recently Relevant to Health Maintenance Results * (ABNORMAL) POC Glycosylated Hemoglobin (Hb A1C) (04/04/2025 10:25 AM EDT) Hemoglobin A1C 6.3(A) 4.5 - 5.7 % [facility] Lot Number [id number] [facility] Expiration Date 12/17/2026 [facility] Blood 04/04/2025 10:2 5 AM EDT Luis Ward MD POINT OF CARE TEST ORDER [email or web address] Final Result [facility]
[address] [place] [phone], * (ABNORMAL) POC Albumin/Creatinine Ratio Urine (04/04/2025 10:06 AM EDT) POC ALBUMIN, URINE 30 mg/L POC CREATININE, URINE 50 mg/dL POC Urine Albumin Creatinine Ratio 30-300 mg/g <30 Comment:abnormal Lot Number [id number] Expiration Date 02/27/2026 Urine 04/04/2025 10:0 6 AM EDT Luis Ward MD POINT OF CARE TEST ORDER [email or web address] Final Result * Colonoscopy, Scan (07/03/2024) Luis Ward MD CHART REVIEW TABS Fin al Result from Last 3 Months or Most Recently Relevant to Health Maintenance [facility] Care Teams Geriatric Social Work Professor Relationship Specialty Start Date End Date Luis Ward MD [address] [place] [address] PCP - General Family Medicine 03/05/22
== END 2025-06-21 23:59 | disposition home or self-care (01) ==
LOC: RAD 10:04
PROVIDERS: PCP Family Medicine; Visit Provider Family Medicine
DX: M25.511 Pain in right shoulder (principal)
CPT/HCPCS: 73030